=== PATIENT | female | born 1990 | race Caucasian/White ===

== ENCOUNTER 2017-03-13 03:55 | Inpatient (IN) | payer OTHER ==
[2017-03-13] MEDS ORDERED: BENZOCAINE 28 GM HEMORRHOIDAL OINTMENT TP PRN (04:52)
[2017-03-13] MEDS ORDERED: WITCH HAZEL 50% (TUCKS) 40 PAD/JAR PAD TP PRN (04:52)
[2017-03-13] MEDS ORDERED: BISACODYL 10 MG SUPP.RECT RC PRN (04:52)
[2017-03-13] MEDS ORDERED: BENZOCAINE 20% 57 GM BOTTLE TP PRN (04:52)
[2017-03-13] MEDS ORDERED: METHYLERGONOVINE MALEATE 0.2 MG/1 ML AMP IM PRN (04:52)
--- NOTE | 2017-03-13 04:59 | HP ---
Past Medical History - Primary Care Physician PCP:: Keagan Mccrary - Admission Chief Complaint: 39 weeks ,labor History of Present Illness: 26 yo f edc 03/16/17 in labor, cx 9 cm, 100 vx 0 , mi , fhr cat 1, contraction regular History Source: Patient Limitations to Obtaining History: Language Barrier - Past Surgical History Hx Myomectomy: No Hx Transabdominal Cerclage: No - Smoking History Smoking history: Never smoked Have you smoked in the past 12 months: No Aproximately how many cigarettes per day: 0 - Alcohol/Substance Use Hx Alcohol Use: No - Social History Usual Living Arrangement: Yes: With Spouse History of Recent Travel: No Home Medications - Allergies Allergies/Adverse Reactions: Allergies Allergy/AdvReac Type Severity Reaction Status Date / Time No Known Allergies Allergy Verified 10/22/16 02:00 - Home Medications Home Medications: Ambulatory Orders Pantoprazole Sodium [Protonix -] 20 mg PO BID PRN #14 tablet.ec 10/22/16 Review of Systems - Review of Systems Constitutional: reports: No Symptoms Eyes: reports: No Symptoms HENT: reports: No Symptoms Neck: reports: No Symptoms Cardiovascular: reports: No Symptoms Respiratory: reports: No Symptoms Gastrointestinal: reports: No Symptoms Genitourinary: reports: No Symptoms Breasts: reports: No Symptoms Reported Musculoskeletal: reports: No Symptoms Integumentary: reports: No Symptoms Neurological: reports: No Symptoms Endocrine: reports: No Symptoms Hematology/Lymphatic: reports: No Symptoms Physical Exam - Maternity Constitutional: Yes: Well Nourished, No Distress, Calm Eyes: Yes: WNL, Conjunctiva Clear, EOM Intact HENT: Yes: WNL, Atraumatic, Normocephalic Neck: Yes: WNL, Supple, Trachea Midline Cardiovascular: Yes: WNL, Regular Rate and Rhythm Breast(s): Yes: WNL - Abdominal Exam/OB Fundal Height: 40 Number of Fetuses: Single Presentation: Vertex Contractions: Yes Regularity: Regular Intensity: Mod/Strong Monitor Mode: External Heart Rate Location: [facility] Category: I Accelerations: Uniform - Vaginal Exam/OB Vaginal Bleediing: Yes, Bloody Show Speculum Exam: No Dilatation (cm): 9 cm Effacement (%): 100 Amniotic Membrane Status: Bulging Presentation: Vertex/Position Station: 0 - Physical Exam Musculoskeletal: Yes: WNL Edema: RLE: 1+ Deep Tendon Reflex Grade: Normal +2 Hemorrhage Risk Assessment - Risk Factors Medium Risk Factors: Yes: None High Risk Factors: Yes: None Risk Score: 1 Risk Level: Medium Risk Problem List - Problems (1) with 39 completed weeks gestation Code(s): Z3A.39 - 39 WEEKS GESTATION OF (2) First stage of labor established Code(s): ITF0724 - Assessment/Plan admit for vaginal delivery
[2017-03-13] MEDS ORDERED: D5W-LR W/ 20 UNITS OXYTOCIN 1,000 ML IV SCH (05:00)
[2017-03-13 05:18] LABS: BASOPHIL 0.4 % (0-2.0); EOSINOPHIL 0.4 % (0-4.5); MCH 29.7 pg (25.7-33.7); MCHC 33.5 g/dl (32.0-36.0); MEAN CELL VOLUME 88.6 fl (80-96); MEAN PLT VOLUME 9.7 fl (7.5-11.1); NEUTROPHILS 85.1 % (42.8-82.8); PLATELET COUNT 169 K/MM3 (134-434); RDW 14.6 % (11.6-15.6)
[2017-03-13 05:28] LABS: INR 0.88 (0.82-1.09); PROTHROMBIN TIME (PATIENT) 9.6 SEC (9.98-11.88)
[2017-03-13 05:30] LABS: ACTIVATED PTT 26.4 SECONDS (26.9-34.4)
[2017-03-13 05:38] LABS: CALCIUM 8.8 mg/dL (8.5-10.1); CREATININE 0.5 mg/dL (0.55-1.02)
[2017-03-13] MEDS ORDERED: PANTOPRAZOLE 20 MG TABLET (FP) PO PRN (05:38)
[2017-03-13 05:50] VITALS: BMI 25.6
[2017-03-13] MEDS: IBUPROFEN 600 MG TABLET (FP) PO PRN ×2 (07:39→17:06)
[2017-03-13] MEDS: ACETAMINOPHEN 325 MG TABLET (FP) PO PRN ×2 (07:42→17:06)
[2017-03-13] MEDS: PRENATAL VITAMINS W/ FOLIC ACID TABLET (FP) PO SCH (09:13)
[2017-03-13] MEDS: FERROUS SO4 325 MG TABLET (FP) PO SCH ×2 (09:13→21:05)
--- NOTE | 2017-03-14 07:58 | PN ---
Post Progress Note Type of Delivery: Vital Signs: Vital Signs Temperature 98.3 F 03/14/17 01:40 Pulse Rate 88 03/14/17 01:40 Respiratory Rate 20 03/14/17 01:40 Blood Pressure 110/50 03/14/17 01:40 O2 Sat by Pulse Oximetry (%) 100 03/13/17 06:00 Breast Exam: Yes: Soft Uterus: Yes: Fundus Firm Incision: Yes: Dressing dry and intact Abdomen/GI: Yes: Abdomen soft Lochia: Yes: Rubra Lochia, amount: Small Extremities: Yes: Calves non-tender Perineum: Yes: Intact - Labs Labs: CBC WBC 14.0 K/mm3 (4.0-10.0) H D 03/13/17 04:50 RBC 4.44 M/mm3 (3.60-5.2) 03/13/17 04:50 Hgb 13.2 GM/dL (10.7-15.3) 03/13/17 04:50 Hct 39.4 % (32.4-45.2) 03/13/17 04:50 MCV 88.6 fl (80-96) 03/13/17 04:50 MCHC 33.5 g/dl (32.0-36.0) 03/13/17 04:50 RDW 14.6 % (11.6-15.6) D 03/13/17 04:50 Plt Count 169 K/MM3 (134-434) 03/13/17 04:50 MPV 9.7 fl (7.5-11.1) D 03/13/17 04:50 Neutrophils % 85.1 % (42.8-82.8) H 03/13/17 04:50 Lymphocytes % 9.6 % (8-40) 03/13/17 04:50 Monocytes % 4.5 % (3.8-10.2) 03/13/17 04:50 Eosinophils % 0.4 % (0-4.5) 03/13/17 04:50 Basophils % 0.4 % (0-2.0) 03/13/17 04:50 Assessment/Plan as above reg diet oob pain control
[2017-03-14 08:45] LABS: BASOPHIL 0.8 % (0-2.0); EOSINOPHIL 2.6 % (0-4.5); MCH 30.5 pg (25.7-33.7); MEAN CELL VOLUME 89.5 fl (80-96); MEAN PLT VOLUME 9.3 fl (7.5-11.1); NEUTROPHILS 63.9 % (42.8-82.8); PLATELET COUNT 158 K/MM3 (134-434); RDW 14.2 % (11.6-15.6); WHITE BLOOD COUNT 10.4 K/mm3 (4.0-10.0)
[2017-03-14] MEDS: FERROUS SO4 325 MG TABLET (FP) PO SCH ×2 (09:26→21:43)
[2017-03-14] MEDS: PRENATAL VITAMINS W/ FOLIC ACID TABLET (FP) PO SCH (09:26)
[2017-03-14] MEDS: IBUPROFEN 600 MG TABLET (FP) PO PRN ×3 (09:28→21:43)
[2017-03-14] MEDS: ACETAMINOPHEN 325 MG TABLET (FP) PO PRN ×3 (09:30→21:42)
[2017-03-14] MEDS ORDERED: SENNOSIDES/DOCUSATE COMBO (SENNA PLUS) TABLET (UD) PO PRN (22:00)
[2017-03-15] MEDS: ACETAMINOPHEN 325 MG TABLET (FP) PO PRN (08:02)
[2017-03-15] MEDS: IBUPROFEN 600 MG TABLET (FP) PO PRN (08:03)
[2017-03-15] MEDS: PRENATAL VITAMINS W/ FOLIC ACID TABLET (FP) PO SCH (10:55)
[2017-03-15] MEDS: FERROUS SO4 325 MG TABLET (FP) PO SCH (10:55)
[2017-03-15 12:00] VITALS: BP 124/66; PULSE 68; TEMP 98.3
== END 2017-03-15 15:00 | disposition home or self-care (01) | DRG 560 ==
LOC: JLDR 03:55 → J3W 08:01
PROVIDERS: ADMIT Obstetrics & Gynecology; ATTEND Obstetrics & Gynecology
PROC: 10E0XZZ Delivery of Products of Conception, External Approach (ICD-10-PCS; principal; 2017-03-13)
PROC: 0KQM0ZZ Repair Perineum Muscle, Open Approach (ICD-10-PCS; 2017-03-13)
DX: O70.1 Second degree perineal laceration during delivery (principal); Z3A.39 39 weeks gestation of pregnancy; Z37.0 Single live birth
CPT/HCPCS: 36415; 59409; 80048; 85025; 85610; 85730; 86593; 86850; 86900; 86901

== ENCOUNTER 2017-04-22 23:12 | Inpatient (IN) | payer OTHER ==
--- NOTE | 2017-04-22 23:44 | PDOC ---
History of Present Illness - General History Source: Patient Exam Limitations: No Limitations - History of Present Illness Initial Comments: 04/22/17 23:54 The patient is a 26 year old female 1.5 months with no significant past medical history who presents to the ED for 3 days of chest pain vs abdominal pain. Patient reports her pain is localized in the epigastric and right upper quadrant region. States her pain is intermittent, worse at rest, and associated with nausea. Took motrin with slight improvement. Pain is not associated with food. Patient denies nausea, vomiting, or diarrhea. She denies oral contraceptives or tobacco use. Patient reports having similar symptoms 2 months prior to her delivery where she was treated here in the ER and discharge. Patient states she is currently breast feeding. The patient denies fever, diaphoresis, chills, cough, SOB, and palpitations. Allergies: NKDA Social History: No alcohol, tobacco, or drug use. Past Surgical History: None reported PCP: Dr. Katya Santos <Sara Zaidi - Last Filed: 04/23/17 00:51> - General History Source: Patient <Mt Ang - Last Filed: 04/23/17 01:05> - General Chief Complaint: Pain Stated Complaint: UPPER STOMACH PAIN Time Seen by Provider: 04/22/17 23:30 Past History <Sara Zaidi - Last Filed: 04/23/17 00:51> - Past Medical History Asthma: No Cancer: No Cardiac Disorders: No Diabetes: No HTN: No Seizures: No Thyroid Disease: No Other medical history: Pt denies - Psycho/Social/Smoking Cessation Hx Suicidal Ideation: No Smoking Status: No Smoking History: Never smoked Have you smoked in the past 12 months: No Number of Cigarettes Smoked Daily: 0 Information on smoking cessation initiated: No Hx Alcohol Use: No Drug/Substance Use Hx: No Substance Use Type: None Hx Substance Use Treatment: No <Mt Ang - Last Filed: 04/23/17 01:05> - Past Medical History Allergies/Adverse Reactions: Allergies Allergy/AdvReac Type Severity Reaction Status Date / Time No Known Allergies Allergy Verified 04/22/17 23:20 Home Medications: Ambulatory Orders Pantoprazole Sodium [Protonix -] 20 mg PO BID PRN #14 tablet.ec 10/22/16 Review of Systems - Review of Systems Able to Perform ROS?: Yes Comments:: 04/22/17 23:54 CONSTITUTIONAL: Absent: fever, no chills, no fatigue EYES: Absent: visual changes ENT: Absent: ear pain, no sore throat CARDIOVASCULAR: +chest pain Absent: no palpitations RESPIRATORY: Absent: cough, no SOB GI: +RUQ and epigastric pain, nausea Absent: no vomiting, no constipation, no diarrhea GENITOURINARY: Absent: dysuria, no frequency, no hematuria MUSCULOSKELETAL: Absent: back pain, no arthralgia, no myalgia SKIN: Absent: rash NEURO: Absent: headache <DejuanSara - Last Filed: 04/23/17 00:51> *Physical Exam - Vital Signs Last Vital Signs Temp Pulse Resp BP Pulse Ox 97.8 F 79 18 131/75 100 04/22/17 23:20 04/22/17 23:20 04/22/17 23:20 04/22/17 23:20 04/22/17 23:20 - Physical Exam Comments: 04/22/17 23:54 GENERAL: Well-appearing, well-nourished. Moderate distress. HEENT: Normocephalic, atraumatic. PERRL, EOM intact. CARDIOVASCULAR: Normal S1, S2. Regular rate and rhythm. PULMONARY: Clear to auscultation bilaterally. ABDOMINAL: Soft. Right upper quadrant and epigastric tenderness. Non-distended. No rebound. Minimal guarding. No organomegaly. Normoactive bowel sounds. EXTREMITIES: Normal ROM in all four extremities. No gross deformities. SKIN: Warm, dry. No rash NEUROLOGICAL: No focal neurological deficits. <Sara Zaidi - Last Filed: 04/23/17 00:51> - Vital Signs Last Vital Signs Temp Pulse Resp BP Pulse Ox 97.8 F 79 18 131/75 100 04/22/17 23:20 04/22/17 23:20 04/22/17 23:20 04/22/17 23:20 04/22/17 23:20 <Mt Ang - Last Filed: 04/23/17 01:05> Heart Score/ECG Review - ECG Impressions Comment:: 04/23/17 00:52 NSR @75bpm Rightward axis Borderline ECG <Sara Zaidi - Last Filed: 04/23/17 00:51> ED Treatment Course - LABORATORY CBC & Chemistry Diagram: 04/23/17 00:01 04/23/17 00:01 - RADIOLOGY Radiograph Interpretation: 04/23/17 00:48 EXAM: GALLBLADDER US Reviewed by Imaging public relations analyst: FINDINGS: The liver is enlarged and appears echogenic. Liver measures 18.6 cm. There are multiple gallstones. There is minimal thickening of the gallbladder wall measuring 3.3 mm.. No evidence for pericholecystic fluid. Negative Glass's sign. The common bile duct measures 4.8 mm. The visualized portions of the pancreas appear unremarkable. The tail of the pancreas is obscured. The right kidney is normal appearing and measures 10.9 x 3.4 x 5.6 cm. Visualized abdominal aorta measures 1.4 cm. IVC and main portal vein are patent. IMPRESSION: 1. Cholelithiasis with minimal thickening of the gallbladder wall. No evidence for sonographic Glass sign or pericholecystic fluid. 2. Fatty infiltration of the liver. <Sara Zaidi - Last Filed: 04/23/17 00:51> - LABORATORY CBC & Chemistry Diagram: 04/23/17 00:01 04/23/17 00:01 <Mt Ang - Last Filed: 04/23/17 01:05> Medical Decision Making - Medical Decision Making 04/23/17 01:04 Dr. Ang: The scribe's documentation has been prepared under my direction and personally reviewed by me in its entirery. I confirm that the note above accurately reflects all work, treatment, procedures, and medical decision making performed by me. Patient with gallstones and early cholecystitis. Patient will be admitted to [facility]. <Mt Ang - Last Filed: 04/23/17 01:05> *DC/Admit/Observation/Transfer - Attestations Scribe Attestion: 04/22/17 23:54 Documentation prepared by Sara Zaidi, acting as biomedical engineer for [facility] Ang MD/. <Sara Zaidi - Last Filed: 04/23/17 00:51> - Discharge Dispostion Admit: Yes <Mt Ang Last Filed: 06/08/17 01:05> Diagnosis at time of Disposition: Elevated transaminase level Cholelithiasis Qualifiers: Cholecystitis presence: with cholecystitis Cholecystitis acuity: acute
[2017-04-22] MEDS ORDERED: FAMOTIDINE 20 MG/50 ML IVPB 20 MG in PREMIX 50 IVPB ONE (23:46)
[2017-04-22] MEDS ORDERED: FAMOTIDINE 20 MG/50 ML IVPB 50 ML IVPB ONE (23:53)
[2017-04-23 00:21] LABS: BASOPHIL 0.6 % (0-2.0); EOSINOPHIL 3.8 % (0-4.5); MCH 28.7 pg (25.7-33.7); MCHC 32.7 g/dl (32.0-36.0); MEAN CELL VOLUME 87.8 fl (80-96); MEAN PLT VOLUME 8.3 fl (7.5-11.1); NEUTROPHILS 68.4 % (42.8-82.8); PLATELET COUNT 239 K/MM3 (134-434); RDW 13.2 % (11.6-15.6); WHITE BLOOD COUNT 9.1 K/mm3 (4.0-10.0)
[2017-04-23 00:44] LABS: ALBUMIN 3.4 g/dl (3.4-5.0); ANION GAP 13 (8-16); BILIRUBIN,TOTAL 0.5 mg/dL (0.2-1.0); CALCIUM 8.8 mg/dL (8.5-10.1); CO2 24 mmol/L (21-32); CREATININE 0.6 mg/dL (0.55-1.02); GLUCOSE,RANDOM 133 mg/dL (74-106); SGOT/AST 156 U/L (15-37); SGPT/ALT 108 U/L (12-78); TOT PROT 6.9 g/dl (6.4-8.2)
[2017-04-23 00:47] LABS: ALK PHOS 134 U/L (45-117); TROPONIN I < 0.02 ng/ml (0.00-0.05)
--- NOTE | 2017-04-23 01:33 | PN ---
<Jesus Garner - Last Filed: 04/23/17 02:57> Teaching Attending Note Name of Resident: Behzad Merino <Sonia Larsen - Last Filed: 04/23/17 02:58> Teaching Attending Note ATTENDING PHYSICIAN STATEMENT I saw and evaluated the patient. I reviewed the resident's note and discussed the case with the resident. I agree with the resident's findings and plan as documented. SUBJECTIVE: 26 yo F with no PMHx presents with 2-3 months of RUQ pain. Patient reports the pain is constant and worsened by using the bathroom. Patient notes the pain is located in the middle of her ribs and radiates toward her back. Patient denies N /V/D. Patient denies fevers and chills. Patient is 2 months . Patient had a vaginal delivery with no complications. OBJECTIVE: Last Vital Signs Temp Pulse Resp BP Pulse Ox 97.8 F 79 18 131/75 100 04/22/17 23:20 04/22/17 23:20 04/22/17 23:20 04/22/17 23:20 04/22/17 23:20 GENERAL: Awake, alert, and fully oriented, in no acute distress HEENT: Atraumatic. PERRLA, EOMI. Moist mucosa. No JVD LUNGS: No distress, speaks full sentences, clear to auscultation bilaterally HEART: Regular rate and rhythm, normal S1 and S2, no murmurs, rubs or gallops, peripheral pulses normal and equal bilaterally. ABDOMEN: Soft, RUQ tenderness to palpation, normoactive bowel sounds. No guarding, no rebound. No masses EXTREMITIES: Normal inspection, Normal range of motion, no edema. No clubbing or Cyanosis. NEUROLOGICAL: Cranial nerves II through XII grossly intact. Normal speech, gait not assessed, no focal sensorimotor deficits SKIN: Warm, Dry, normal turgor, no rashes or lesions noted. CBCD WBC 9.1 K/mm3 (4.0-10.0) 04/23/17 00:01 RBC 4.51 M/mm3 (3.60-5.2) 04/23/17 00:01 Hgb 13.0 GM/dL (10.7-15.3) D 04/23/17 00:01 Hct 39.6 % (32.4-45.2) D 04/23/17 00:01 MCV 87.8 fl (80-96) 04/23/17 00:01 MCHC 32.7 g/dl (32.0-36.0) 04/23/17 00:01 RDW 13.2 % (11.6-15.6) 04/23/17 00:01 Plt Count 239 K/MM3 (134-434) D 04/23/17 00:01 MPV 8.3 fl (7.5-11.1) D 04/23/17 00:01 CMP Sodium 141 mmol/L (136-145) 04/23/17 00:01 Potassium 3.3 mmol/L (3.5-5.1) L 04/23/17 00:01 Chloride 104 mmol/L (98-107) 04/23/17 00:01 Carbon Dioxide 24 mmol/L (21-32) D 04/23/17 00:01 Anion Gap 13 (8-16) 04/23/17 00:01 BUN 12 mg/dL (7-18) D 04/23/17 00:01 Creatinine 0.6 mg/dL (0.55-1.02) 04/23/17 00:01 Creat Clearance w eGFR > 60 (>60) 04/23/17 00:01 Calcium 8.8 mg/dL (8.5-10.1) 04/23/17 00:01 Total Bilirubin 0.5 mg/dL (0.2-1.0) D 04/23/17 00:01 AST 156 U/L (15-37) H D 04/23/17 00:01 ALT 108 U/L (12-78) H D 04/23/17 00:01 Alkaline Phosphatase 134 U/L (45-117) H D 04/23/17 00:01 Total Protein 6.9 g/dl (6.4-8.2) 04/23/17 00:01 Albumin 3.4 g/dl (3.4-5.0) 04/23/17 00:01 ASSESSMENT AND PLAN: 26 yo F with no PMHX who presents with RUQ abdominal pain for 2-3 months. 1.) Biliary colic r/o acute cholecystitis -NPO -IVF -Morphine PRN for pain -Zofran as needed for nausea -Surgical consult -Repeat LFTs in AM 2.) Hypokalemia -K supplementation DVT ppx -Low risk -ambulate Documentation is prepared by Sonia Larsen acting as medical voucher clerk for Jesus Langford M.D.
[2017-04-23] MEDS ORDERED: KCL 10 MEQ IVPB 100 ML IVPB SCH (02:15)
[2017-04-23] MEDS: SODIUM CHLORIDE 1,000 ML IV SCH ×3 (02:18→21:58)
--- NOTE | 2017-04-23 02:19 | HP ---
CHIEF COMPLAINT: abd pain OBGYN: Dr. Katya Santos PCP: ? HISTORY OF PRESENT ILLNESS: 26 year old female 1.5 months with no significant past medical history who presents to the ED for 4 days of chest pain, abdominal pain, and back pain. constant pain localized in the epigastric and right upper quadrant region radiating to back. Took motrin with slight improvement. Pain is not associated with food. Patient denies nausea, vomiting, or diarrhea. Patient reports having similar symptoms 3 months prior, where she was treated here in the ER and discharge. She denies fever, chills, diaphoresis, generalized weakness. She denies shortness of breath, cough, nausea, vomiting, diarrhea, dysuria, hematuria, urinary frequency and urgency, flank pain, vaginal discharge/vaginal bleeding. Patient states she is currently breast feeding. 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 Recent Travel:non PAST MEDICAL HISTORY: non PAST SURGICAL HISTORY:non Social History: Smoking:no Alcohol:no Drugs: no Family History: aunt DM, cousin gallstones Allergies No Known Allergies Allergy (Verified 04/22/17 23:20) HOME MEDICATIONS: Home Medications Medication Instructions Recorded Pantoprazole Sodium [Protonix -] 20 mg PO BID PRN #14 tablet.ec 10/22/16 REVIEW OF SYSTEMS CONSTITUTIONAL: Absent: fever, chills, diaphoresis, generalized weakness, malaise, loss of appetite, weight change HEENT: Absent: rhinorrhea, nasal congestion, throat pain, throat swelling, difficulty swallowing, mouth swelling, ear pain, eye pain, visual changes CARDIOVASCULAR: chest pain, Absent: syncope, palpitations, irregular heart rate, lightheadedness, peripheral edema RESPIRATORY: Absent: cough, shortness of breath, dyspnea with exertion, orthopnea, wheezing, stridor, hemoptysis GASTROINTESTINAL:abdominal pain, Absent: abdominal distension, nausea, vomiting, diarrhea, constipation, melena , hematochezia GENITOURINARY: Absent: dysuria, frequency, urgency, hesitancy, hematuria, flank pain, genital pain MUSCULOSKELETAL: back pain, Absent: myalgia, arthralgia, joint swelling, neck pain SKIN: Absent: rash, itching, pallor HEMATOLOGIC/IMMUNOLOGIC: Absent: easy bleeding, easy bruising, lymphadenopathy, frequent infections ENDOCRINE: Absent: unexplained weight gain, unexplained weight loss, heat intolerance, cold intolerance NEUROLOGIC: Absent: headache, focal weakness or paresthesias, dizziness, unsteady gait, seizure, mental status changes, bladder or bowel incontinence PSYCHIATRIC: Absent: anxiety, depression, suicidal or homicidal ideation, hallucinations. PHYSICAL EXAMINATION Vital Signs - 24 hr 04/22/17 23:20 Temperature 97.8 F Pulse Rate 79 Respiratory 18 Rate Blood Pressure 131/75 O2 Sat by Pulse 100 Oximetry (%) GENERAL: Awake, alert, and fully oriented, in moderate distress. HEAD: Normal with no signs of trauma. EYES: extraocular movements intact, sclera anicteric, conjunctiva clear. EARS, NOSE, THROAT: Ears normal, nares patent, oropharynx clear without exudates. Moist mucous membranes. NECK: Normal range of motion, supple without lymphadenopathy, JVD, or masses. LUNGS: Breath sounds equal, clear to auscultation bilaterally. No wheezes, and no crackles. No accessory muscle use. HEART: Regular rate and rhythm, normal S1 and S2 without murmur, rub or gallop. ABDOMEN: Soft, tender epi gastric and RUQ , + glass, not distended, normoactive bowel sounds, no guarding, no rebound, no masses. No hepatomegaly or splenomegaly. MUSCULOSKELETAL: Normal range of motion at all joints. No bony deformities or tenderness. No CVA tenderness. LOWER EXTREMITIES: 2+ pulses, warm, well-perfused. No calf tenderness. No peripheral edema. NEUROLOGICAL: no facial asymmetry, Normal speech. PSYCHIATRIC: Cooperative. Good eye contact. Appropriate mood and affect. SKIN: Warm, dry, normal turgor, no rashes or lesions noted, normal capillary refill. Laboratory Results - last 24 hr 04/23/17 04/23/17 00:01 00:01 WBC 9.1 RBC 4.51 Hgb 13.0 D Hct 39.6 D MCV 87.8 MCHC 32.7 RDW 13.2 Plt Count 239 D MPV 8.3 D Neutrophils % 68.4 Lymphocytes % 21.0 D Monocytes % 6.2 Eosinophils % 3.8 Basophils % 0.6 Sodium 141 Potassium 3.3 L Chloride 104 Carbon Dioxide 24 D Anion Gap 13 BUN 12 D Creatinine 0.6 Creat Clearance w eGFR > 60 Random Glucose 133 H D Calcium 8.8 Magnesium 2.0 Total Bilirubin 0.5 D AST 156 H D ALT 108 H D Alkaline Phosphatase 134 H D Creatine Kinase 79 Troponin I < 0.02 Total Protein 6.9 Albumin 3.4 Lipase 170 04/23/17 00:48 EXAM: GALLBLADDER US Reviewed by Imaging office receptionist: FINDINGS: The liver is enlarged and appears echogenic. Liver measures 18.6 cm. There are multiple gallstones. There is minimal thickening of the gallbladder wall measuring 3.3 mm.. No evidence for pericholecystic fluid. Negative Glass's sign. The common bile duct measures 4.8 mm. The visualized portions of the pancreas appear unremarkable. The tail of the pancreas is obscured. The right kidney is normal appearing and measures 10.9 x 3.4 x 5.6 cm. Visualized abdominal aorta measures 1.4 cm. IVC and main portal vein are patent. IMPRESSION: 1. Cholelithiasis with minimal thickening of the gallbladder wall. No evidence for sonographic Glass sign or pericholecystic fluid. 2. Fatty infiltration of the liver. 04/23/17 00:52 NSR @75bpm Rightward axis Borderline ECG ASSESSMENT/PLAN: 26 year old female 1.5 months with no significant past medical history who presents to the ED for 4 days of chest pain, abdominal pain, and back pain found to have Cholelithiasis and possible early cholecystitis. cholecystitis elevated LFTs + U/S + RUQ tenderness pain control IV fluids Surgery consulted UA CBC cross and screen PT/ptt/INR chest pain r/o acs CXR pending- Hcg no tdone as patient 1.5 most likley will be false positive EKG NS troponin neg x1 will trend Back pain: most likely referred pain. hypokalemia KCL 10 meq IVPB FEN NPO IV NS at 125cc/hr monitor and replete electrolytes as needed dispo: admitted to [facility], awaiting surgery input. . Visit type - Emergency Visit Emergency Visit: Yes ED Registration Date: 04/23/17 Care time: The patient presented to the Emergency Department on the above date and was hospitalized for further evaluation of their emergent condition. - New Patient This patient is new to me today: Yes Date on this admission: 04/23/17 - Critical Care Critical Care patient: No
[2017-04-23 02:35] LABS: URINE APPEARANCE CLEAR; URINE BILIRUBIN NEGATIVE (NEGATIVE); URINE COLOR LTYELLOW; URINE GLUCOSE (UA) NEGATIVE (NEGATIVE); URINE KETONE NEGATIVE (NEGATIVE); URINE NITRITE NEGATIVE (NEGATIVE); URINE PROTEIN NEGATIVE (NEGATIVE); URINE UROBILINOGEN NEGATIVE E.U./dl (0.2-1.0)
[2017-04-23 02:58] LABS: URINE BLOOD 2+ (NEGATIVE); URINE LEUK ESTERASE 3+ (NEGATIVE)
[2017-04-23 03:18] VITALS: BMI 25.9
[2017-04-23 04:37] LABS: URINE MUCUS RARE; URINE RBC 25 /hpf (0-3); URINE WBC 42 /hpf (3-5)
[2017-04-23 07:02] LABS: MCH 29.8 pg (25.7-33.7); MCHC 33.9 g/dl (32.0-36.0); MEAN PLT VOLUME 8.1 fl (7.5-11.1); PLATELET COUNT 221 K/MM3 (134-434); RDW 12.8 % (11.6-15.6); WHITE BLOOD COUNT 6.6 K/mm3 (4.0-10.0)
[2017-04-23 07:10] LABS: INR 0.95 (0.82-1.09); PROTHROMBIN TIME (PATIENT) 10.4 SEC (9.98-11.88)
[2017-04-23 07:13] LABS: ALBUMIN 3.2 g/dl (3.4-5.0); ANION GAP 10 (8-16); CALCIUM 8.4 mg/dL (8.5-10.1); CO2 25 mmol/L (21-32); CREATININE 0.5 mg/dL (0.55-1.02); GLUCOSE,RANDOM 95 mg/dL (74-106); MAGNESIUM 2.1 mg/dL (1.8-2.4); PHOSPHOROUS 3.7 mg/dL (2.5-4.9)
[2017-04-23 07:20] LABS: ALK PHOS 153 U/L (45-117); BILIRUBIN,TOTAL 1.4 mg/dL (0.2-1.0); TOT PROT 6.2 g/dl (6.4-8.2)
[2017-04-23 07:27] LABS: SGOT/AST 1572 U/L (15-37)
[2017-04-23 07:28] LABS: SGPT/ALT 888 U/L (12-78)
--- NOTE | 2017-04-23 08:06 | PN ---
Progress Note (short form) - Note Progress Note: surgery pt to be evaluated. u/s shows stones and spike in lfts consistent with choledocholithiasis. suggest gi eval for choledocholithiasis and ercp. unlikely acute cholecystitis. surgery to follow clearing of cbd.
--- NOTE | 2017-04-23 10:32 | EKG ---
Test Reason : Blood Pressure : / mmHG Vent. Rate : 075 BPM Atrial Rate : 075 BPM P-R Int : 148 ms QRS Dur : 088 ms QT Int : 400 ms P-R-T Axes : 032 100 074 degrees QTc Int : 446 ms NORMAL SINUS RHYTHM RIGHTWARD AXIS BORDERLINE ECG WHEN COMPARED WITH ECG OF 22-OCT-2016 02:01, NO SIGNIFICANT CHANGE WAS FOUND Confirmed by KE STONE MD ([id number]) on 04/23/2017 10:31:35 AM Referred By: Confirmed By:KE STONE MD
--- NOTE | 2017-04-23 17:04 | PN ---
Physical Exam: SUBJECTIVE: Patient seen and examined at bedside. RUQ pain is improved. Continues to have discomfort. Denies CP,LAYTON, SOB, palpitations, N/V. OBJECTIVE: Vital Signs Period Temp Pulse Resp BP Sys/Hutton Pulse Ox Last 24 Hr 98.6 F-99.0 F 67-80 18-20 109-117/72-73 99-99 GENERAL: AAOx3 , mild distress HEAD: NC/AT EYES: PERRL, EOMI, sclera anicteric, conjunctiva clear. No ptosis. ENT: moist mucous membranes. NECK: supple, no JVD LUNGS: CTAB, no wheeze or rales HEART: RRR, no M/G/R ABDOMEN: Soft, VALERIE tenderness, negative jay sign, nondistended, normoactive bowel sounds, no guarding, no rebound, no hepatosplenomegaly, no masses. EXTREMITIES: 2+ pulses, warm, well-perfused, no edema. NEUROLOGICAL: Cranial nerves II through XII grossly intact. Normal speech, gait not observed. Laboratory Results - last 24 hr 04/23/17 04/23/17 04/23/17 02:12 02:19 02:19 WBC RBC Hgb Hct MCV MCHC RDW Plt Count MPV INR Sodium Potassium Chloride Carbon Dioxide Anion Gap BUN Creatinine Creat Clearance w eGFR Random Glucose Calcium Phosphorus Magnesium Total Bilirubin AST ALT Alkaline Phosphatase Total Protein Albumin Serum , Qual Negative Urine Color Ltyellow Urine Appearance Clear Urine pH 6.0 Ur Specific [place] 1.010 Urine Protein Negative Urine Glucose (UA) Negative Urine Ketones Negative Urine Blood 2+ H Urine Nitrite Negative Urine Bilirubin Negative Urine Urobilinogen Negative Ur Leukocyte Esterase 3+ H D Urine RBC 25 Urine WBC 42 Ur Epithelial Cells Moderate Urine Mucus Rare Blood Type O POSITIVE Antibody Screen Negative 04/23/17 04/23/17 04/23/17 05:55 05:55 05:55 WBC 6.6 RBC 4.46 Hgb 13.3 Hct 39.2 MCV 88.0 MCHC 33.9 RDW 12.8 Plt Count 221 MPV 8.1 INR 0.95 Sodium 142 Potassium 4.2 D Chloride 107 Carbon Dioxide 25 Anion Gap 10 BUN 9 D Creatinine 0.5 L Creat Clearance w eGFR > 60 Random Glucose 95 D Calcium 8.4 L Phosphorus 3.7 Magnesium 2.1 Total Bilirubin 1.4 H D AST 1572 H ALT 888 H D Alkaline Phosphatase 153 H Total Protein 6.2 L Albumin 3.2 L Serum , Qual Urine Color Urine Appearance Urine pH Ur Specific [place] Urine Protein Urine Glucose (UA) Urine Ketones Urine Blood Urine Nitrite Urine Bilirubin Urine Urobilinogen Ur Leukocyte Esterase Urine RBC Urine WBC Ur Epithelial Cells Urine Mucus Blood Type Antibody Screen Active Medications Generic Name Dose Route Start Last Admin Trade Name Freq PRN Reason Stop Dose Admin Sodium Chloride 1,000 mls @ 125 mls/hr 04/23/17 01:45 04/23/17 12:01 Normal Saline - IV 125 mls/hr ASDIR IGNACIO Administration Ketorolac Tromethamine 15 mg 04/23/17 01:37 Toradol Injection - IVPUSH 04/28/17 01:36 Q6H PRN PAIN IMAGING: * TYPE/EXAM: RESULT: [id number] US/GALLBLADDER US HISTORY PROVIDED: Right upper quadrant pain. Real time examination of the abdomen demonstrates the following: The gallbladder is normal in size and does contain multiple calculi. There is no evidence of intra or extrahepatic biliary duct dilatation. There is no sonographic evidence of acute cholecystitis. If this is clinically suspected, a follow-up HIDA scan may be warranted. The liver is enlarged measuring 18.6 cm in cranial carotid dimension. It is hypoechoic in texture consistent with diffuse fatty infiltration. No discrete intrahepatic masses are identified. The pancreas is normal in size and texture with no pancreatic masses identified. The tail of the pancreas was not well visualized due to overlying bowel gas. There is no evidence of hydronephrosis or acute abnormalities of the right kidney. There is no evidence of AAA. The IVC is patent. IMPRESSION: Cholelithiasis and diffuse fatty infiltration of the liver. Please see above discussion. Reported By: Aaron Mckinney MD 04/23/17 0813 ASSESSMENT/PLAN: 26 yo F with no significant PMHx. presents with RUQ pain for 2-3 months. Problem List - Problems (1) Cholelithiasis Assessment/Plan: * US reveled multiple small calculi, but no evidence of duct dilatation. No evidence of cholecystitis. * Patient LFT's have increased significantly and may represent a stone in CBD * Evaluated by surgery - no intervention at this time. * Patient is NPO * IVF * Morphine for pain controll * Zofran for nausea. (2) Elevated transaminase level Assessment/Plan: * Most likely represents stone in CBD. * Hepatitis unlikely given sudden sudden increase. * Will consult GI for possible ERCP. * Will continue to trend. (3) Hypokalemia Assessment/Plan: * resolved with supplemental potassium * repeat labs in AM. Visit type - Emergency Visit Emergency Visit: Yes ED Registration Date: 04/23/17 Care time: The patient presented to the Emergency Department on the above date and was hospitalized for further evaluation of their emergent condition. - New Patient This patient is new to me today: Yes Date on this admission: 04/23/17 - Critical Care Critical Care patient: No - Discharge Referral Referred to [facility] Med P.C.: No
--- NOTE | 2017-04-23 18:02 | PN ---
Progress Note (short form) - Note Progress Note: discussed with Dr Garner and was advised to call GI engineering production liaison
[2017-04-23] MEDS ORDERED: ONDANSETRON 4 MG/2 ML VIAL IVPB PRN (20:26)
--- NOTE | 2017-04-23 20:42 | PN ---
Teaching Attending Note Name of Resident: Devaughn Kaufman ATTENDING PHYSICIAN STATEMENT I saw and evaluated the patient. I reviewed the resident's note and discussed the case with the resident. I agree with the resident's findings and plan as documented. SUBJECTIVE: Patient is feeling better, continues to have pain RUQ area with radiating to the back. OBJECTIVE: Vital Signs Temperature 100.4 F H 04/23/17 17:52 Pulse Rate 65 04/23/17 17:52 Respiratory Rate 20 04/23/17 17:52 Blood Pressure 113/65 04/23/17 17:52 O2 Sat by Pulse Oximetry (%) 99 04/23/17 09:00 CBCD WBC 6.6 K/mm3 (4.0-10.0) 04/23/17 05:55 RBC 4.46 M/mm3 (3.60-5.2) 04/23/17 05:55 Hgb 13.3 GM/dL (10.7-15.3) 04/23/17 05:55 Hct 39.2 % (32.4-45.2) 04/23/17 05:55 MCV 88.0 fl (80-96) 04/23/17 05:55 MCHC 33.9 g/dl (32.0-36.0) 04/23/17 05:55 RDW 12.8 % (11.6-15.6) 04/23/17 05:55 Plt Count 221 K/MM3 (134-434) 04/23/17 05:55 MPV 8.1 fl (7.5-11.1) 04/23/17 05:55 CMP Sodium 142 mmol/L (136-145) 04/23/17 05:55 Potassium 4.2 mmol/L (3.5-5.1) D 04/23/17 05:55 Chloride 107 mmol/L (98-107) 04/23/17 05:55 Carbon Dioxide 25 mmol/L (21-32) 04/23/17 05:55 Anion Gap 10 (8-16) 04/23/17 05:55 BUN 9 mg/dL (7-18) D 04/23/17 05:55 Creatinine 0.5 mg/dL (0.55-1.02) L 04/23/17 05:55 Creat Clearance w eGFR > 60 (>60) 04/23/17 05:55 Random Glucose 95 mg/dL (74-106) D 04/23/17 05:55 Calcium 8.4 mg/dL (8.5-10.1) L 04/23/17 05:55 Total Bilirubin 1.4 mg/dL (0.2-1.0) H D 04/23/17 05:55 AST 1572 U/L (15-37) H 04/23/17 05:55 ALT 888 U/L (12-78) H D 04/23/17 05:55 Alkaline Phosphatase 153 U/L (45-117) H 04/23/17 05:55 Total Protein 6.2 g/dl (6.4-8.2) L 04/23/17 05:55 Albumin 3.2 g/dl (3.4-5.0) L 04/23/17 05:55 CARDIAC ENZYMES Creatine Kinase 79 IU/L (26-192) 04/23/17 00:01 Troponin I < 0.02 ng/ml (0.00-0.05) 04/23/17 00:01 Home Medications Medication Instructions Recorded Pantoprazole Sodium [Protonix -] 20 mg PO BID PRN #14 tablet.ec 10/22/16 Current Medications Generic Name Dose Route Start Last Admin Trade Name Freq PRN Reason Stop Dose Admin Sodium Chloride 1,000 mls @ 125 mls/hr 04/23/17 01:45 04/23/17 12:01 Normal Saline - IV 125 mls/hr ASDIR IGNACIO Administration Ketorolac Tromethamine 15 mg 04/23/17 01:37 Toradol Injection - IVPUSH 04/28/17 01:36 Q6H PRN PAIN Ondansetron HCl 4 mg 04/23/17 20:26 Zofran Injection IVPB Q6H PRN NAUSEA US: Image Reviewed (gallstones, normal bile ducts) ASSESSMENT AND PLAN: Patient is a 26F presents with epigastric colicky pain radiating into her back .Had similar pain in 7th month of . Delivered child in 03/02. # Acute choledocholithiasis. GI consult for eval for possible ercp. #Acute Transaminitis due to stones or CBD stones DVT Px: SCDs
--- NOTE | 2017-04-23 22:42 | CON.GI ---
Consult Consult Specialty:: Gastroenterology Referred by:: Dr. Newell Reason for Consultation:: Abd pain - History of Present Illness Chief Complaint: Epigastric pain radiating into the back since last night History of Present Illness: 26F presents with epigastric colicky pain radiating into her back since last night. Had similar pain in 7th month of . Delivered child in 03/02. History and consent obtained using [employer] development coordinator # [id number]. No h/o previous GI problems or surgery. 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 (year): age 18 History of Recent Travel: No Home Medications - Allergies Allergies/Adverse Reactions: Allergies Allergy/AdvReac Type Severity Reaction Status Date / Time No Known Allergies Allergy Verified 04/22/17 23:20 - Home Medications Home Medications: Ambulatory Orders Pantoprazole Sodium [Protonix -] 20 mg PO BID PRN #14 tablet.ec 10/22/16 Family Disease History - Family Disease History Other Family History: Cousin had surgery for GB stones Review of Systems - Review of Systems Constitutional: reports: Chills Eyes: reports: No Symptoms HENT: reports: No Symptoms Neck: reports: No Symptoms Cardiovascular: reports: No Symptoms Respiratory: reports: No Symptoms Gastrointestinal: reports: Abdominal Pain, Nausea Genitourinary: reports: No Symptoms Musculoskeletal: reports: No Symptoms Integumentary: reports: No Symptoms Neurological: reports: No Symptoms Endocrine: reports: No Symptoms Physical Exam-GI Vital Signs: Vital Signs Temperature 100.4 F H 04/23/17 17:52 Pulse Rate 65 04/23/17 17:52 Respiratory Rate 20 04/23/17 17:52 Blood Pressure 113/65 04/23/17 17:52 O2 Sat by Pulse Oximetry (%) 96 04/23/17 21:00 CBC,CMP WBC 6.6 K/mm3 (4.0-10.0) 04/23/17 05:55 RBC 4.46 M/mm3 (3.60-5.2) 04/23/17 05:55 Hgb 13.3 GM/dL (10.7-15.3) 04/23/17 05:55 Hct 39.2 % (32.4-45.2) 04/23/17 05:55 MCV 88.0 fl (80-96) 04/23/17 05:55 MCHC 33.9 g/dl (32.0-36.0) 04/23/17 05:55 RDW 12.8 % (11.6-15.6) 04/23/17 05:55 Plt Count 221 K/MM3 (134-434) 04/23/17 05:55 MPV 8.1 fl (7.5-11.1) 04/23/17 05:55 Neutrophils % 68.4 % (42.8-82.8) 04/23/17 00:01 Lymphocytes % 21.0 % (8-40) D 04/23/17 00:01 Monocytes % 6.2 % (3.8-10.2) 04/23/17 00:01 Eosinophils % 3.8 % (0-4.5) 04/23/17 00:01 Basophils % 0.6 % (0-2.0) 04/23/17 00:01 Sodium 142 mmol/L (136-145) 04/23/17 05:55 Potassium 4.2 mmol/L (3.5-5.1) D 04/23/17 05:55 Chloride 107 mmol/L (98-107) 04/23/17 05:55 Carbon Dioxide 25 mmol/L (21-32) 04/23/17 05:55 Anion Gap 10 (8-16) 04/23/17 05:55 BUN 9 mg/dL (7-18) D 04/23/17 05:55 Creatinine 0.5 mg/dL (0.55-1.02) L 04/23/17 05:55 Creat Clearance w eGFR > 60 (>60) 04/23/17 05:55 Random Glucose 95 mg/dL (74-106) D 04/23/17 05:55 Calcium 8.4 mg/dL (8.5-10.1) L 04/23/17 05:55 Phosphorus 3.7 mg/dL (2.5-4.9) 04/23/17 05:55 Magnesium 2.1 mg/dL (1.8-2.4) 04/23/17 05:55 Total Bilirubin 1.4 mg/dL (0.2-1.0) H D 04/23/17 05:55 AST 1572 U/L (15-37) H 04/23/17 05:55 ALT 888 U/L (12-78) H D 04/23/17 05:55 Alkaline Phosphatase 153 U/L (45-117) H 04/23/17 05:55 Creatine Kinase 79 IU/L (26-192) 04/23/17 00:01 Troponin I < 0.02 ng/ml (0.00-0.05) 04/23/17 00:01 Total Protein 6.2 g/dl (6.4-8.2) L 04/23/17 05:55 Albumin 3.2 g/dl (3.4-5.0) L 04/23/17 05:55 Lipase 170 U/L (73-393) 04/23/17 00:01 Serum , Qual Negative 04/23/17 02:12 Current Medications Generic Name Dose Route Start Last Admin Trade Name Freq PRN Reason Stop Dose Admin Sodium Chloride 1,000 mls @ 125 mls/hr 04/23/17 01:45 04/23/17 21:58 Normal Saline - IV 125 mls/hr ASDIR IGNACIO Administration Ketorolac Tromethamine 15 mg 04/23/17 01:37 Toradol Injection - IVPUSH 04/28/17 01:36 Q6H PRN PAIN Ondansetron HCl 4 mg 04/23/17 20:26 Zofran Injection IVPB Q6H PRN NAUSEA Constitutional: Yes: Well Nourished Eyes: Yes: Conjunctiva Clear HENT: Yes: Atraumatic Neck: Yes: Supple Cardiovascular: Yes: Regular Rate and Rhythm Respiratory: Yes: CTA Bilaterally Gastrointestinal Inspection: Yes: WNL ...Auscultate: Yes: Normoactive Bowel Sounds ...Palpate: Yes: Soft, Tenderness (RUQ) ...Rectal Exam: Yes: Deferred Edema: No Peripheral Pulses WNL: Yes Integumentary: Yes: WNL Labs: CBC, BMP 04/23/17 05:55 04/23/17 05:55 INR, PTT INR 0.95 (0.82-1.09) 04/23/17 05:55 Imaging - Results Ultrasound: Image Reviewed (gallstones, normal bile ducts) Assessment/Plan 26F recently has biliary colic and rise in LFTs that suggests passage of a stone or stones into the common bile duct. Using the [employer] I informed the patient of the likely need for an ERCP, sphincterotomy ,., stone extractions and possible stenting. I also informed her of the potential of such complications as perforation of bowel or bile duct. hemorrhage and multiorgan failure related to the ERCP procedure with the potential need for transfusions and emergency surgery. I also informed her that she will subsequently need a cholecystectomy. I have ordered an MRCP which could obviate the need for ERCP. I will start Ringers lactate to help prevent ERCP pancreatitis and start antibiotics after blood cultures if not already done. Indocin suppository linda be given before the ERCP. Further recommendations to follow.
[2017-04-23] MEDS ORDERED: LACTATED RINGERS SOLUTION 1,000 ML IV SCH (23:00)
[2017-04-23] MEDS: METRONIDAZOLE 500 MG PREMIXED 100 ML IVPB SCH (23:35)
[2017-04-23] MEDS: CEFAZOLIN (PRE-DOCKED) 50 ML IVPB SCH (23:35)
[2017-04-24] MEDS: METRONIDAZOLE 500 MG PREMIXED 100 ML IVPB SCH ×3 (01:04→18:19)
[2017-04-24] MEDS: CEFAZOLIN (PRE-DOCKED) 50 ML IVPB SCH ×3 (01:04→18:18)
[2017-04-24 07:00] LABS: BASOPHIL 0.3 % (0-2.0); EOSINOPHIL 4.1 % (0-4.5); MCH 30.1 pg (25.7-33.7); MCHC 34.2 g/dl (32.0-36.0); MEAN CELL VOLUME 88.1 fl (80-96); NEUTROPHILS 79.5 % (42.8-82.8); PLATELET COUNT 198 K/MM3 (134-434); RDW 12.9 % (11.6-15.6); WHITE BLOOD COUNT 9.4 K/mm3 (4.0-10.0)
[2017-04-24 07:11] LABS: INR 1.05 (0.82-1.09); PROTHROMBIN TIME (PATIENT) 11.6 SEC (9.98-11.88)
[2017-04-24 07:21] LABS: BILIRUBIN,DIRECT 1.4 mg/dL (0.0-0.2); C-REACTIVE PROTEIN 1.9 MG/DL (0.00-0.3); CALCIUM 8.3 mg/dL (8.5-10.1)
[2017-04-24 07:29] LABS: ALBUMIN 3.2 g/dl (3.4-5.0); ALK PHOS 219 U/L (45-117); ANION GAP 14 (8-16); BILIRUBIN,TOTAL 2.4 mg/dL (0.2-1.0); CO2 20 mmol/L (21-32); CREATININE 0.4 mg/dL (0.55-1.02); GLUCOSE,RANDOM 69 mg/dL (74-106); TOT PROT 6.3 g/dl (6.4-8.2); TROPONIN I < 0.02 ng/ml (0.00-0.05)
[2017-04-24 07:32] LABS: SGOT/AST 587 U/L (15-37); SGPT/ALT 925 U/L (12-78)
--- NOTE | 2017-04-24 08:24 | CONS ---
DATE OF CONSULTATION: 04/23/2017 INPATIENT CONSULTATION REQUESTING PHYSICIAN: Anisha Hernandez MD BRIEF HISTORY: This is a 26-year-old female who approximately 2 months ago had a baby. She had previous episodes of epigastric abdominal pain. She came into the emergency room with similar symptoms, stating they have lasted for the past 3 days. She was worked up for chest pain as well as abdominal pain. She had an ultrasound done, which showed that she had gallstones with minimal thickening of the gallbladder wall and no sonographic Glass sign noted. Her white blood cell count was normal at 6.6, and she had mildly elevated liver function tests, with initial AST of 156 and ALT of 108, and an alkaline phosphatase of 134. She was admitted to the hospital for possible early cholecystitis, but repeat liver function tests rapidly increased, showing now an increased total bilirubin of 1.4, AST of 1572, ALT of 888 and an alkaline phosphatase of 153. The patient actually states she feels somewhat better, but still has some mild epigastric pain. She denies nausea, denies vomiting, denies diarrhea, denies blood in her stool, denies recent weight loss. PAST MEDICAL HISTORY: Otherwise negative. PAST SURGICAL HISTORY: Nil. ALLERGIES: She has no known drug allergies. MEDICATIONS: Home medications include Protonix. SOCIAL HISTORY: Negative for alcohol, negative for tobacco. FAMILY HISTORY: Negative for malignancy in the immediate family. REVIEW OF SYSTEMS: General: Admits to some fatigue. Cardiac: Denies chest pain, but does admit to upper abdominal/epigastric pain. Gastrointestinal: As stated in the HPI. Genitourinary: Denies dysuria. Musculoskeletal: Denies joint pain or joint swelling. Psychiatric: Denies depression or hearing voices. PHYSICAL EXAMINATION: General: This is a well-developed, well-nourished, 26-year-old female in no distress. Vital signs: She is afebrile. Her vital signs are stable. HEENT: Her head is normocephalic. Sclerae are anicteric. Neck: Supple. Chest: Clear. Abdomen: Soft. She has mild epigastric tenderness. She has no right upper quadrant tenderness. She has no surgical scars and no obvious hernias. Extremities: No clubbing, cyanosis or edema. LABORATORY STUDIES: As stated in the HPI. IMAGING: As stated in the HPI. ASSESSMENT: This is a 26-year-old female , now with epigastric pain, markedly elevated liver function tests and an ultrasound showing gallstones, without any other atypical findings. Clinically this is likely choledocholithiasis. Recommend GI evaluation for possible ERCP. I will make further recommendations after the ERCP, but the patient likely will be found to have choledocholithiasis and will need cholecystectomy, either as an inpatient or outpatient. Less likely in the differential would be an acute viral or medication-induced hepatitis. The patient currently does not need emergent cholecystectomy and does not have acute cholecystitis. DO ESTEFANI ALONSO/[id number]
[2017-04-24] MEDS ORDERED: INDOMETHACIN 50 MG RECTAL SUPPOSITORY PR ONE (12:00)
--- NOTE | 2017-04-24 12:55 | PN ---
Progress Note (short form) - Note Progress Note: surgery pt seen and examined. still has some epigastric pain. MRI reviewed and appears to have cbd stone. official report pending. abd- soft, mild epigastric tenderness Laboratory Tests 04/24/17 04/24/17 06:00 06:00 Total Bilirubin 2.4 H D Direct Bilirubin 1.4 H AST 587 H D ALT 925 H Alkaline Phosphatase 219 H D Plan- eliceo choledocholithias. ercp per gi. eventual cholecystectomy pending clinical course.
[2017-04-24] MEDS ORDERED: DESFLURANE GAS 240 ML BOTTLE IH ONE (13:58)
[2017-04-24] MEDS ORDERED: LIDOCAINE HCL/PF 2% SDV 5ML VIAL ONE (14:10)
[2017-04-24] MEDS ORDERED: ONDANSETRON 4 MG/2 ML VIAL ONE (14:10)
[2017-04-24] MEDS ORDERED: MIDAZOLAM HCL 2 MG/2 ML SINGLE DOSE VIAL ONE (14:10)
--- NOTE | 2017-04-24 15:34 | PN ---
Physical Exam: SUBJECTIVE: Patient seen and examined at bedside. No overnight events. No new complaints. OBJECTIVE: Vital Signs Period Temp Pulse Resp BP Sys/Hutton Pulse Ox Last 24 Hr 98.6 F-100.4 F 65-82 18-20 110-114/52-65 96 GENERAL: AAOx3 , mild distress HEAD: NC/AT EYES: PERRL, EOMI, sclera anicteric, conjunctiva clear. No ptosis. ENT: moist mucous membranes. NECK: supple, no JVD LUNGS: CTAB, no wheeze or rales HEART: RRR, no M/G/R ABDOMEN: Soft, RUQ tenderness, negative jay sign, nondistended, normoactive bowel sounds, no guarding, no rebound, no hepatosplenomegaly, no masses. EXTREMITIES: 2+ pulses, warm, well-perfused, no edema. NEUROLOGICAL: Cranial nerves II through XII grossly intact. Normal speech, gait not observed Laboratory Results - last 24 hr 04/24/17 04/24/17 04/24/17 06:00 06:00 06:00 WBC 9.4 D RBC 4.47 Hgb 13.4 Hct 39.4 MCV 88.1 MCHC 34.2 RDW 12.9 Plt Count 198 MPV 8.0 Neutrophils % 79.5 Lymphocytes % 12.2 D Monocytes % 3.9 Eosinophils % 4.1 Basophils % 0.3 INR Sodium 141 Potassium 3.8 Chloride 107 Carbon Dioxide 20 L Anion Gap 14 BUN 9 Creatinine 0.4 L Creat Clearance w eGFR > 60 Random Glucose 69 L D Calcium 8.3 L Total Bilirubin 2.4 H D Direct Bilirubin 1.4 H AST 587 H D ALT 925 H Alkaline Phosphatase 219 H D Troponin I < 0.02 C-Reactive Protein 1.9 H Total Protein 6.3 L Albumin 3.2 L Total Amylase 53 Lipase 125 04/24/17 06:00 WBC RBC Hgb Hct MCV MCHC RDW Plt Count MPV Neutrophils % Lymphocytes % Monocytes % Eosinophils % Basophils % INR 1.05 Sodium Potassium Chloride Carbon Dioxide Anion Gap BUN Creatinine Creat Clearance w eGFR Random Glucose Calcium Total Bilirubin Direct Bilirubin AST ALT Alkaline Phosphatase Troponin I C-Reactive Protein Total Protein Albumin Total Amylase Lipase Active Medications Generic Name Dose Route Start Last Admin Trade Name Freq PRN Reason Stop Dose Admin Cefazolin Sodium 50 mls @ 100 mls/hr 04/23/17 23:00 04/24/17 11:20 Ancef 1gm Ivpb (Pre-Docked) IVPB 100 mls/hr Q8H-IV IGNACIO Administration Metronidazole 100 mls @ 100 mls/hr 04/23/17 23:00 04/24/17 11:20 Flagyl 500mg Premixed Ivpb - IVPB 100 mls/hr Q8H-IV IGNACIO Administration Lactated Ringer's 1,000 mls @ 150 mls/hr 04/23/17 23:00 04/23/17 23:36 Lactated Ringers Solution IV 150 mls/hr ASDIR IGNACIO Administration Ketorolac Tromethamine 15 mg 04/23/17 01:37 Toradol Injection - IVPUSH 04/28/17 01:36 Q6H PRN PAIN Ondansetron HCl 4 mg 04/23/17 20:26 Zofran Injection IVPB Q6H PRN NAUSEA IMAGING: * US/GALLBLADDER US HISTORY PROVIDED: Right upper quadrant pain. Real time examination of the abdomen demonstrates the following: The gallbladder is normal in size and does contain multiple calculi. There is no evidence of intra or extrahepatic biliary duct dilatation. There is no sonographic evidence of acute cholecystitis. If this is clinically suspected, a follow-up HIDA scan may be warranted. The liver is enlarged measuring 18.6 cm in cranial carotid dimension. It is hypoechoic in texture consistent with diffuse fatty infiltration. No discrete intrahepatic masses are identified. The pancreas is normal in size and texture with no pancreatic masses identified. The tail of the pancreas was not well visualized due to overlying bowel gas. There is no evidence of hydronephrosis or acute abnormalities of the right kidney. There is no evidence of AAA. The IVC is patent. IMPRESSION: Cholelithiasis and diffuse fatty infiltration of the liver. Please see above discussion. Reported By: Aaron Mckinney MD 04/23/17 0813 * MRI/ABDOMEN MRI W/O CONTRAST /MRCP MRI OF THE ABDOMEN WITHOUT IV GADOLINIUM WITH MRCP The visualized lung bases inferior mediastinum are unremarkable. The liver is normal in size demonstrating significant loss of signal on out of phase imaging suggestive of fatty infiltration. There is no evidence of focal hepatic signal abnormality The spleen is normal in size with no evidence of focal abnormal signal. The pancreas is homogeneous in signal no evidence of focal signal abnormality. The pancreatic duct is nondilated. The gallbladder is distended containing multiple layering gallstones or wall thickening. There is a 4 mm stone in the distal CBD but with no appreciable CBD or intrahepatic biliary ductal dilatation. The adrenal glands are unremarkable. There is a 1.2 cm incompletely characterized left renal cyst. There is no evidence of abdominal lymphadenopathy or abdominal ascites. There are no abnormally dilated bowel loops. The visualized osseous structures are grossly unremarkable. IMPRESSION: Cholelithiasis with MRI findings of acute cholecystitis. Choledocholithiasis but with no significant CBD or intrahepatic biliary ductal dilatation. Marked fatty infiltration of the liver. 1.2 cm incompletely characterized left renal cyst. Correlation with renal ultrasound is suggested. Reported By: Benjamín Velázquez MD 04/24/17 1510 ASSESSMENT/PLAN: 26 yo F with no significant PMHx. presents with RUQ pain for 2-3 months. Problem List - Problems (1) Cholelithiasis Assessment/Plan: * MRCP shows gallstones with evidence of cholecystitis. * Evaluated by surgery - no intervention at this time. * Patient is NPO * Dr. Kim has seen and possible ERCP. * IVF * Morphine for pain controll * Zofran for nausea. (2) Elevated transaminase level Assessment/Plan: * MRCP confirmed CBD stone and cholecystitis. * they are trending down * repeat labs in AM (3) Hypokalemia Assessment/Plan: * resolved with supplemental potassium * repeat labs in AM. Visit type - Emergency Visit Emergency Visit: Yes ED Registration Date: 04/23/17 Care time: The patient presented to the Emergency Department on the above date and was hospitalized for further evaluation of their emergent condition. - New Patient This patient is new to me today: No - Critical Care Critical Care patient: No
--- NOTE | 2017-04-24 16:51 | PN ---
Progress Note (short form) - Note Progress Note: GI Procedure NOte: MRCP revealed a distal CBD stone. Please see ERCP report. The patient had a single distal CBD stone which was removed after creation of a sphincterotomy. Given that the procedure was brief no attempt to place a protective pancreatic stent was made. Will nevertheless order brisk RL. Patient did receive Indocin prior to the procedure.
[2017-04-24] MEDS ORDERED: LACTATED RINGERS SOLUTION 1,000 ML IV SCH ×2 (17:00→23:00)
[2017-04-24] MEDS ORDERED: PROMETHAZINE HCL 25 MG/1 ML VIAL IVPUSH PRN (17:02)
[2017-04-24] MEDS ORDERED: ONDANSETRON 4 MG/2 ML VIAL IVPUSH PRN (17:02)
[2017-04-24] MEDS: LACTATED RINGERS SOLUTION 1,000 ML IV SCH (18:18)
--- NOTE | 2017-04-24 20:29 | PN ---
Teaching Attending Note Name of Resident: Devaughn Kaufman ATTENDING PHYSICIAN STATEMENT I saw and evaluated the patient. I reviewed the resident's note and discussed the case with the resident. I agree with the resident's findings and plan as documented. SUBJECTIVE: Patient continues to have pain, s/p MRCP and ERCP OBJECTIVE: Vital Signs Temperature 98.1 F 04/24/17 17:40 Pulse Rate 88 04/24/17 17:40 Respiratory Rate 18 04/24/17 17:40 Blood Pressure 116/54 04/24/17 17:40 O2 Sat by Pulse Oximetry (%) 96 04/24/17 17:38 CBCD WBC 9.4 K/mm3 (4.0-10.0) D 04/24/17 06:00 RBC 4.47 M/mm3 (3.60-5.2) 04/24/17 06:00 Hgb 13.4 GM/dL (10.7-15.3) 04/24/17 06:00 Hct 39.4 % (32.4-45.2) 04/24/17 06:00 MCV 88.1 fl (80-96) 04/24/17 06:00 MCHC 34.2 g/dl (32.0-36.0) 04/24/17 06:00 RDW 12.9 % (11.6-15.6) 04/24/17 06:00 Plt Count 198 K/MM3 (134-434) 04/24/17 06:00 MPV 8.0 fl (7.5-11.1) 04/24/17 06:00 CMP Sodium 141 mmol/L (136-145) 04/24/17 06:00 Potassium 3.8 mmol/L (3.5-5.1) 04/24/17 06:00 Chloride 107 mmol/L (98-107) 04/24/17 06:00 Carbon Dioxide 20 mmol/L (21-32) L 04/24/17 06:00 Anion Gap 14 (8-16) 04/24/17 06:00 BUN 9 mg/dL (7-18) 04/24/17 06:00 Creatinine 0.4 mg/dL (0.55-1.02) L 04/24/17 06:00 Creat Clearance w eGFR > 60 (>60) 04/24/17 06:00 Random Glucose 69 mg/dL (74-106) L D 04/24/17 06:00 Calcium 8.3 mg/dL (8.5-10.1) L 04/24/17 06:00 Total Bilirubin 2.4 mg/dL (0.2-1.0) H D 04/24/17 06:00 AST 587 U/L (15-37) H D 04/24/17 06:00 ALT 925 U/L (12-78) H 04/24/17 06:00 Alkaline Phosphatase 219 U/L (45-117) H D 04/24/17 06:00 Total Protein 6.3 g/dl (6.4-8.2) L 04/24/17 06:00 Albumin 3.2 g/dl (3.4-5.0) L 04/24/17 06:00 CARDIAC ENZYMES Creatine Kinase 79 IU/L (26-192) 04/23/17 00:01 Troponin I < 0.02 ng/ml (0.00-0.05) 04/24/17 06:00 Current Medications Generic Name Dose Route Start Last Admin Trade Name Freq PRN Reason Stop Dose Admin Cefazolin Sodium 50 mls @ 100 mls/hr 04/23/17 23:00 04/24/17 18:18 Ancef 1gm Ivpb (Pre-Docked) IVPB 100 mls/hr Q8H-IV IGNACIO Administration Metronidazole 100 mls @ 100 mls/hr 04/23/17 23:00 04/24/17 18:19 Flagyl 500mg Premixed Ivpb - IVPB 100 mls/hr Q8H-IV IGNACIO Administration Lactated Ringer's 1,000 mls @ 200 mls/hr 04/24/17 17:00 04/24/17 18:19 Lactated Ringers Solution IV 04/24/17 23:00 Not Given ASDIR IGNACIO Lactated Ringer's 1,000 mls @ 175 mls/hr 04/24/17 23:00 Lactated Ringers Solution IV 04/25/17 05:00 ASDIR IGNACIO Lactated Ringer's 1,000 mls @ 150 mls/hr 04/25/17 05:00 Lactated Ringers Solution IV 04/25/17 11:00 ASDIR IGNACIO Lactated Ringer's 1,000 mls @ 125 mls/hr 04/25/17 11:00 Lactated Ringers Solution IV ASDIR IGNACIO Lactated Ringer's 1,000 mls @ 125 mls/hr 04/24/17 17:15 04/24/17 18:18 Lactated Ringers Solution IV 125 mls/hr ASDIR IGNACIO Administration Ketorolac Tromethamine 15 mg 04/23/17 01:37 Toradol Injection - IVPUSH 04/28/17 01:36 Q6H PRN PAIN Ondansetron HCl 4 mg 04/23/17 20:26 Zofran Injection IVPB Q6H PRN NAUSEA Ondansetron HCl 4 mg 04/24/17 17:02 Zofran Injection IVPUSH 04/24/17 23:03 Q6H PRN NAUSEA AND/OR VOMITING Promethazine HCl 12.5 mg 04/24/17 17:02 Phenergan Injection - IVPUSH 04/24/17 23:03 Q6H PRN NAUSEA Home Medications Medication Instructions Recorded Pantoprazole Sodium [Protonix -] 20 mg PO BID PRN #14 tablet.ec 10/22/16 ASSESSMENT AND PLAN: 26 yo F with no significant PMHx. presents with RUQ pain for 2-3 months. # Acute choledocholithiasis. GI consult appreciated. Started on Lactated ringers As per GI; Dr. Garcia: MRCP revealed a distal CBD stone. s/p ERCP . The patient had a single distal CBD stone which was removed after creation of a sphincterotomy. Given that the procedure was brief no attempt to place a protective pancreatic stent was made. Patient did receive Indocin prior to the procedure. # Acute Transaminitis continue monitoring . reeat levels in am
[2017-04-25] MEDS: METRONIDAZOLE 500 MG PREMIXED 100 ML IVPB SCH ×3 (01:12→17:09)
[2017-04-25] MEDS: CEFAZOLIN (PRE-DOCKED) 50 ML IVPB SCH ×3 (01:13→17:07)
[2017-04-25] MEDS ORDERED: LACTATED RINGERS SOLUTION 1,000 ML IV SCH (05:00)
[2017-04-25 07:43] LABS: BASOPHIL 0.4 % (0-2.0); EOSINOPHIL 6.5 % (0-4.5); MCH 29.8 pg (25.7-33.7); MEAN CELL VOLUME 87.7 fl (80-96); MEAN PLT VOLUME 8.1 fl (7.5-11.1); NEUTROPHILS 68.1 % (42.8-82.8); PLATELET COUNT 197 K/MM3 (134-434); WHITE BLOOD COUNT 7.3 K/mm3 (4.0-10.0)
[2017-04-25 08:01] LABS: ALBUMIN 3.2 g/dl (3.4-5.0); ALK PHOS 192 U/L (45-117); ANION GAP 12 (8-16); CALCIUM 8.5 mg/dL (8.5-10.1); CO2 23 mmol/L (21-32); CREATININE 0.5 mg/dL (0.55-1.02); GLUCOSE,RANDOM 61 mg/dL (74-106); SGOT/AST 218 U/L (15-37)
[2017-04-25 08:05] LABS: BILIRUBIN,DIRECT 1.1 mg/dL (0.0-0.2); C-REACTIVE PROTEIN 2.8 MG/DL (0.00-0.3)
[2017-04-25 08:13] LABS: SGPT/ALT 559 U/L (12-78)
--- NOTE | 2017-04-25 08:13 | PN ---
Progress Note (short form) - Note Progress Note: Anesthesia Post op Pt seen and examined S:alert and awake O: Vital Signs Temperature 98.4 F 04/25/17 05:51 Pulse Rate 78 04/25/17 05:51 Respiratory Rate 18 04/25/17 05:51 Blood Pressure 110/66 04/25/17 05:51 O2 Sat by Pulse Oximetry (%) 97 04/24/17 20:44 CBC, BMP 04/25/17 06:00 A/P:Current Active Problems Cholelithiasis (Acute) Elevated transaminase level (Acute) Hypokalemia (Acute) s/p ERCP Doing well post op Continue current care Jama North MD
[2017-04-25] MEDS: KETOROLAC TROMETHAMINE 15 MG/ML VIAL IVPUSH PRN ×2 (09:37→17:13)
[2017-04-25] MEDS: LACTATED RINGERS SOLUTION 1,000 ML IV SCH ×3 (11:19→17:15)
--- NOTE | 2017-04-25 11:53 | PN ---
Progress Note (short form) - Note Progress Note: Patient is comfortable has no new complain, no shortness of breath. Temperature 98.4 F 04/25/17 05:51 Pulse Rate 78 04/25/17 05:51 Respiratory Rate 18 04/25/17 05:51 Blood Pressure 110/66 04/25/17 05:51 O2 Sat by Pulse Oximetry (%) 97 04/24/17 20:44 GENERAL: AAOx3 , mild distress HEAD: NC/AT EYES: PERRL, EOMI, sclera anicteric, conjunctiva clear. No ptosis. ENT: moist mucous membranes. NECK: supple, no JVD LUNGS: CTAB, no wheeze or rales HEART: RRR, no M/G/R ABDOMEN: Soft, RUQ tenderness, negative jya sign, nondistended, normoactive bowel sounds, no guarding, no rebound, no hepatosplenomegaly, no masses. EXTREMITIES: 2+ pulses, warm, well-perfused, no edema. NEUROLOGICAL: Cranial nerves II through XII grossly intact. Normal speech, gait not observed CBCD WBC 7.3 K/mm3 (4.0-10.0) 04/25/17 06:00 RBC 4.16 M/mm3 (3.60-5.2) 04/25/17 06:00 Hgb 12.4 GM/dL (10.7-15.3) 04/25/17 06:00 Hct 36.5 % (32.4-45.2) 04/25/17 06:00 MCV 87.7 fl (80-96) 04/25/17 06:00 MCHC 34.0 g/dl (32.0-36.0) 04/25/17 06:00 RDW 13.0 % (11.6-15.6) 04/25/17 06:00 Plt Count 197 K/MM3 (134-434) 04/25/17 06:00 MPV 8.1 fl (7.5-11.1) 04/25/17 06:00 CMP Sodium 141 mmol/L (136-145) 04/25/17 06:00 Potassium 3.9 mmol/L (3.5-5.1) 04/25/17 06:00 Chloride 106 mmol/L (98-107) 04/25/17 06:00 Carbon Dioxide 23 mmol/L (21-32) 04/25/17 06:00 Anion Gap 12 (8-16) 04/25/17 06:00 BUN 8 mg/dL (7-18) 04/25/17 06:00 Creatinine 0.5 mg/dL (0.55-1.02) L D 04/25/17 06:00 Creat Clearance w eGFR > 60 (>60) 04/25/17 06:00 Random Glucose 61 mg/dL (74-106) L 04/25/17 06:00 Calcium 8.5 mg/dL (8.5-10.1) 04/25/17 06:00 Total Bilirubin 2.0 mg/dL (0.2-1.0) H 04/25/17 06:00 AST 218 U/L (15-37) H D 04/25/17 06:00 ALT 559 U/L (12-78) H D 04/25/17 06:00 Alkaline Phosphatase 192 U/L (45-117) H 04/25/17 06:00 Total Protein 6.0 g/dl (6.4-8.2) L 04/25/17 06:00 Albumin 3.2 g/dl (3.4-5.0) L 04/25/17 06:00 CARDIAC ENZYMES Creatine Kinase 79 IU/L (26-192) 04/23/17 00:01 Troponin I < 0.02 ng/ml (0.00-0.05) 04/24/17 06:00 Current Medications Generic Name Dose Route Start Last Admin Trade Name Freq PRN Reason Stop Dose Admin Cefazolin Sodium 50 mls @ 100 mls/hr 04/23/17 23:00 04/25/17 09:37 Ancef 1gm Ivpb (Pre-Docked) IVPB 100 mls/hr Q8H-IV IGNACIO Administration Metronidazole 100 mls @ 100 mls/hr 04/23/17 23:00 04/25/17 09:37 Flagyl 500mg Premixed Ivpb - IVPB 100 mls/hr Q8H-IV IGNACIO Administration Lactated Ringer's 1,000 mls @ 125 mls/hr 04/25/17 11:00 04/25/17 11:19 Lactated Ringers Solution IV 125 mls/hr ASDIR IGNACIO Administration Lactated Ringer's 1,000 mls @ 125 mls/hr 04/24/17 17:15 04/24/17 18:18 Lactated Ringers Solution IV 125 mls/hr ASDIR IGNACIO Administration Ketorolac Tromethamine 15 mg 04/23/17 01:37 04/25/17 09:37 Toradol Injection - IVPUSH 04/28/17 01:36 15 mg Q6H PRN Administration PAIN Ondansetron HCl 4 mg 04/23/17 20:26 Zofran Injection IVPB Q6H PRN NAUSEA Home Medications Medication Instructions Recorded Pantoprazole Sodium [Protonix -] 20 mg PO BID PRN #14 tablet.ec 10/22/16 26 yo F with no significant PMHx. presents with RUQ pain for 2-3 months. # Acute choledecholithiais GI consult appreciated. Started on Lactated ringers As per GI; Dr. Garcia: MRCP revealed a distal CBD stone. s/p ERCP . The patient had a single distal CBD stone which was removed after creation of a sphincterotomy. Given that the procedure was brief no attempt to place a protective pancreatic stent was made. Patient did receive Indocin prior to the procedure. as per Surgery; tentative cholecystectyomy Thursday # Acute Transaminitis continue monitoring . repeat levels in am DVT Px: Heparin sq Visit type - Emergency Visit Emergency Visit: Yes ED Registration Date: 04/23/17 Care time: The patient presented to the Emergency Department on the above date and was hospitalized for further evaluation of their emergent condition. - New Patient This patient is new to me today: No - Critical Care Critical Care patient: No
--- NOTE | 2017-04-25 13:23 | PN ---
Progress Note (short form) - Note Progress Note: surgery pt seen and examined. s/p ercp, sphincterotomy, stone extract. feels well afebrile abd-soft, nt paln- follow lfts. tentative cholecystectyomy Thursday Laboratory Tests 04/25/17 04/25/17 06:00 06:00 Total Bilirubin 2.0 H Direct Bilirubin 1.1 H D AST 218 H D ALT 559 H D Alkaline Phosphatase 192 H
[2017-04-26] MEDS: METRONIDAZOLE 500 MG PREMIXED 100 ML IVPB SCH ×3 (01:12→17:22)
[2017-04-26] MEDS: CEFAZOLIN (PRE-DOCKED) 50 ML IVPB SCH ×3 (02:03→17:22)
[2017-04-26] MEDS: LACTATED RINGERS SOLUTION 1,000 ML IV SCH ×2 (06:05→18:40)
[2017-04-26] MEDS: KETOROLAC TROMETHAMINE 15 MG/ML VIAL IVPUSH PRN (07:52)
[2017-04-26 08:14] LABS: BASOPHIL 0.8 % (0-2.0); MCH 29.7 pg (25.7-33.7); MEAN CELL VOLUME 87.3 fl (80-96); MEAN PLT VOLUME 8.1 fl (7.5-11.1); NEUTROPHILS 58.9 % (42.8-82.8); PLATELET COUNT 206 K/MM3 (134-434); RDW 12.9 % (11.6-15.6); WHITE BLOOD COUNT 6.4 K/mm3 (4.0-10.0)
[2017-04-26 08:58] LABS: ALK PHOS 194 U/L (45-117); ANION GAP 9 (8-16); BILIRUBIN,TOTAL 1.2 mg/dL (0.2-1.0); CALCIUM 8.3 mg/dL (8.5-10.1); CO2 28 mmol/L (21-32); COCKROFT - GAULT 154.1475; CREATININE 0.5 mg/dL (0.55-1.02); GLUCOSE,RANDOM 85 mg/dL (74-106); MAGNESIUM 1.7 mg/dL (1.8-2.4); PHOSPHOROUS 3.7 mg/dL (2.5-4.9); SGOT/AST 130 U/L (15-37); SGPT/ALT 386 U/L (12-78); TOT PROT 5.9 g/dl (6.4-8.2)
--- NOTE | 2017-04-26 09:38 | PN ---
Teaching Attending Note Name of Resident: Devaughn Kaufman ATTENDING PHYSICIAN STATEMENT I saw and evaluated the patient. I reviewed the resident's note and discussed the case with the resident. I agree with the resident's findings and plan as documented. SUBJECTIVE: Patient continues to have RUQ pain, less than before. OBJECTIVE: Vital Signs Temperature 98.4 F 04/26/17 08:00 Pulse Rate 52 L 04/26/17 08:00 Respiratory Rate 18 04/26/17 08:00 Blood Pressure 126/66 04/26/17 08:00 O2 Sat by Pulse Oximetry (%) 96 04/25/17 21:00 CBCD WBC 6.4 K/mm3 (4.0-10.0) 04/26/17 07:20 RBC 4.22 M/mm3 (3.60-5.2) 04/26/17 07:20 Hgb 12.5 GM/dL (10.7-15.3) 04/26/17 07:20 Hct 36.8 % (32.4-45.2) 04/26/17 07:20 MCV 87.3 fl (80-96) 04/26/17 07:20 MCHC 34.0 g/dl (32.0-36.0) 04/26/17 07:20 RDW 12.9 % (11.6-15.6) 04/26/17 07:20 Plt Count 206 K/MM3 (134-434) 04/26/17 07:20 MPV 8.1 fl (7.5-11.1) 04/26/17 07:20 CMP Sodium 141 mmol/L (136-145) 04/26/17 07:20 Potassium 3.6 mmol/L (3.5-5.1) 04/26/17 07:20 Chloride 104 mmol/L (98-107) 04/26/17 07:20 Carbon Dioxide 28 mmol/L (21-32) D 04/26/17 07:20 Anion Gap 9 (8-16) 04/26/17 07:20 BUN 5 mg/dL (7-18) L D 04/26/17 07:20 Creatinine 0.5 mg/dL (0.55-1.02) L 04/26/17 07:20 Creat Clearance w eGFR > 60 (>60) 04/26/17 07:20 Random Glucose 85 mg/dL (74-106) D 04/26/17 07:20 Calcium 8.3 mg/dL (8.5-10.1) L 04/26/17 07:20 Total Bilirubin 1.2 mg/dL (0.2-1.0) H D 04/26/17 07:20 AST 130 U/L (15-37) H D 04/26/17 07:20 ALT 386 U/L (12-78) H D 04/26/17 07:20 Alkaline Phosphatase 194 U/L (45-117) H 04/26/17 07:20 Total Protein 5.9 g/dl (6.4-8.2) L 04/26/17 07:20 Albumin 3.0 g/dl (3.4-5.0) L 04/26/17 07:20 CARDIAC ENZYMES Creatine Kinase 79 IU/L (26-192) 04/23/17 00:01 Troponin I < 0.02 ng/ml (0.00-0.05) 04/24/17 06:00 Current Medications Generic Name Dose Route Start Last Admin Trade Name Freq PRN Reason Stop Dose Admin Enoxaparin Sodium 40 mg 04/26/17 10:00 Lovenox - SQ DAILY IGNACIO Cefazolin Sodium 50 mls @ 100 mls/hr 04/23/17 23:00 04/26/17 02:03 Ancef 1gm Ivpb (Pre-Docked) IVPB 100 mls/hr Q8H-IV IGNACIO Administration Metronidazole 100 mls @ 100 mls/hr 04/23/17 23:00 04/26/17 01:12 Flagyl 500mg Premixed Ivpb - IVPB 100 mls/hr Q8H-IV IGNACIO Administration Lactated Ringer's 1,000 mls @ 125 mls/hr 04/25/17 11:00 04/26/17 06:05 Lactated Ringers Solution IV 125 mls/hr ASDIR IGNACIO Administration Lactated Ringer's 1,000 mls @ 125 mls/hr 04/24/17 17:15 04/25/17 17:15 Lactated Ringers Solution IV Not Given ASDIR IGNACIO Ondansetron HCl 4 mg 04/23/17 20:26 Zofran Injection IVPB Q6H PRN NAUSEA Home Medications Medication Instructions Recorded Pantoprazole Sodium [Protonix -] 20 mg PO BID PRN #14 tablet.ec 10/22/16 ASSESSMENT AND PLAN: 26 yo F with no significant PMHx. presents with RUQ pain for 2-3 months. # Acute choledecholithiais GI consult appreciated. On Lactated ringers continue. as per Surgery;cholecystectyomy on Thursday As per GI; Dr. Garcia: MRCP revealed a distal CBD stone. s/p ERCP . The patient had a single distal CBD stone which was removed after creation of a sphincterotomy. Given that the procedure was brief no attempt to place a protective pancreatic stent was made. Patient did receive Indocin prior to the procedure. # Acute Transaminitis continue monitoring . repeat levels in am DVT Px: lovenox sq stop it tonight for possible cholecystectomy
--- NOTE | 2017-04-26 09:39 | PN ---
Physical Exam: SUBJECTIVE: Patient seen and examined at bedside. No overnight events. No new complaints. Abd. pain is well controlled. Denies CP,LAYTON, SOB, palpitations, N/V. OBJECTIVE: Vital Signs Period Temp Pulse Resp BP Sys/Hutton Pulse Ox Last 24 Hr 96.6 F-99.9 F 50-61 17-18 109-136/54-75 96 GENERAL: AAOx3 , mild distress HEAD: NC/AT EYES: PERRL, EOMI, sclera anicteric, conjunctiva clear. No ptosis. ENT: moist mucous membranes. NECK: supple, no JVD LUNGS: CTAB, no wheeze or rales HEART: RRR, no M/G/R ABDOMEN: Soft, RUQ tenderness, negative jay sign, nondistended, normoactive bowel sounds, no guarding, no rebound, no hepatosplenomegaly, no masses. EXTREMITIES: 2+ pulses, warm, well-perfused, no edema. NEUROLOGICAL: Cranial nerves II through XII grossly intact. Normal speech, gait not observed Laboratory Results - last 24 hr 04/26/17 04/26/17 07:20 07:20 WBC 6.4 RBC 4.22 Hgb 12.5 Hct 36.8 MCV 87.3 MCHC 34.0 RDW 12.9 Plt Count 206 MPV 8.1 Neutrophils % 58.9 Lymphocytes % 23.1 D Monocytes % 9.2 Eosinophils % 8.0 H Basophils % 0.8 Sodium 141 Potassium 3.6 Chloride 104 Carbon Dioxide 28 D Anion Gap 9 BUN 5 L D Creatinine 0.5 L Creat Clearance w eGFR > 60 Random Glucose 85 D Calcium 8.3 L Phosphorus 3.7 Magnesium 1.7 L Total Bilirubin 1.2 H D AST 130 H D ALT 386 H D Alkaline Phosphatase 194 H Total Protein 5.9 L Albumin 3.0 L Active Medications Generic Name Dose Route Start Last Admin Trade Name Freq PRN Reason Stop Dose Admin Enoxaparin Sodium 40 mg 04/26/17 10:00 Lovenox - SQ DAILY IGNACIO Cefazolin Sodium 50 mls @ 100 mls/hr 04/23/17 23:00 04/26/17 02:03 Ancef 1gm Ivpb (Pre-Docked) IVPB 100 mls/hr Q8H-IV IGNACIO Administration Metronidazole 100 mls @ 100 mls/hr 04/23/17 23:00 04/26/17 01:12 Flagyl 500mg Premixed Ivpb - IVPB 100 mls/hr Q8H-IV IGNACIO Administration Lactated Ringer's 1,000 mls @ 125 mls/hr 04/25/17 11:00 04/26/17 06:05 Lactated Ringers Solution IV 125 mls/hr ASDIR IGNACIO Administration Lactated Ringer's 1,000 mls @ 125 mls/hr 04/24/17 17:15 04/25/17 17:15 Lactated Ringers Solution IV Not Given ASDIR IGNACIO Ondansetron HCl 4 mg 04/23/17 20:26 Zofran Injection IVPB Q6H PRN NAUSEA ASSESSMENT/PLAN: 26 yo F with no significant PMHx. presents with RUQ pain for 2-3 months. Problem List - Problems (1) Cholelithiasis Assessment/Plan: * S/P ERCP on 04/24/17 with removal of CBD stone. * cholecystectomy tomorrow * Clear Liquid diet. NPO after midnight * Morphine for pain controll * Zofran for nausea. (2) Elevated transaminase level Assessment/Plan: * continue to trend down. * ERCP with removal of stone * repeat labs in AM (3) Hypokalemia Assessment/Plan: * resolved with supplemental potassium * repeat labs in AM. Visit type - Emergency Visit Emergency Visit: Yes ED Registration Date: 04/23/17 Care time: The patient presented to the Emergency Department on the above date and was hospitalized for further evaluation of their emergent condition. - New Patient This patient is new to me today: No - Critical Care Critical Care patient: No - Discharge Referral Referred to [facility] No
[2017-04-26] MEDS ORDERED: ENOXAPARIN NA (PORCINE) 40 MG/0.4 ML DISP.SYRIN SQ ONE (10:00)
[2017-04-26] MEDS ORDERED: ENOXAPARIN NA (PORCINE) 40 MG/0.4 ML DISP.SYRIN SQ SCH (10:00)
[2017-04-27] MEDS: METRONIDAZOLE 500 MG PREMIXED 100 ML IVPB SCH ×3 (01:10→17:10)
[2017-04-27] MEDS: CEFAZOLIN (PRE-DOCKED) 50 ML IVPB SCH ×3 (02:01→17:10)
[2017-04-27] MEDS: LACTATED RINGERS SOLUTION 1,000 ML IV SCH (02:01)
[2017-04-27 07:22] LABS: CALCIUM 8.5 mg/dL (8.5-10.1); COCKROFT - GAULT 193.936; CREATININE 0.4 mg/dL (0.55-1.02)
[2017-04-27 07:29] LABS: MCH 29.9 pg (25.7-33.7); MCHC 34.4 g/dl (32.0-36.0); MEAN PLT VOLUME 8.2 fl (7.5-11.1); PLATELET COUNT 217 K/MM3 (134-434); RDW 12.9 % (11.6-15.6); WHITE BLOOD COUNT 5.3 K/mm3 (4.0-10.0)
[2017-04-27 07:56] LABS: INR 1.08 (0.82-1.09); PROTHROMBIN TIME (PATIENT) 11.9 SEC (9.98-11.88)
[2017-04-27] MEDS ORDERED: MIDAZOLAM HCL 2 MG/2 ML SINGLE DOSE VIAL ONE (12:37)
[2017-04-27] MEDS ORDERED: morphine CARPU-JECT 4 MG/1 ML DISP.SYRIN IVPB PRN (12:51)
[2017-04-27] MEDS ORDERED: oxyCODONE HCL 5 MG TABLET PO PRN (12:51)
[2017-04-27] MEDS ORDERED: ROCURONIUM BROMIDE 50 MG/5 ML VIAL ONE (13:04)
[2017-04-27] MEDS ORDERED: GLYCOPYRROLATE 0.2 MG/1 ML VIAL ONE (13:49)
[2017-04-27] MEDS ORDERED: LIDOCAINE HCL/PF 2% SDV 5ML VIAL ONE (13:49)
[2017-04-27] MEDS ORDERED: KETOROLAC TROMETHAMINE 30 MG/1 ML VIAL ONE (13:49)
[2017-04-27] MEDS ORDERED: DEXAMETHASONE SOD PHOSPHATE 4 MG/1 ML VIAL ONE (13:49)
[2017-04-27] MEDS ORDERED: NEOSTIGMINE METHYLSULFATE 0.5 MG/ML - 10 ML MDV ONE (13:49)
--- NOTE | 2017-04-27 14:10 | OP ---
Operative Note - Note: Operative Date: 04/27/17 Pre-Operative Diagnosis: cholelithiasis, choledocholithiasis Operation: laparoscopic cholecytectomy, lavage Findings: pale gb Post-Operative Diagnosis: Same as Pre-op Surgeon: Jama Clancy Anesthesiologist/MANUFACTURING QUALITY TECHNICIAN: Tricia Limon MD Anesthesia: General Specimens Removed: gb Estimated Blood Loss (mls): 30 Operative Report Dictated: Yes
[2017-04-27] MEDS ORDERED: ONDANSETRON 4 MG/2 ML VIAL IVPB PRN (14:34)
[2017-04-27] MEDS ORDERED: LACTATED RINGERS SOLUTION 1,000 ML IV SCH (14:34)
--- NOTE | 2017-04-27 15:53 | PN ---
Physical Exam: SUBJECTIVE: Patient seen and examined at bedside. POD # 0 s/p lap cholecystecomy. Tolerated the procedure well. Pain well controlled. Denies CP, LAYTON, SOB, palpitations , N/V. OBJECTIVE: Vital Signs Period Temp Pulse Resp BP Sys/Hutton Pulse Ox Last 24 Hr 97.5 F-99.0 F 51-66 15-20 115-137/61-74 96-100 GENERAL: AAOx3 , mild distress HEAD: NC/AT EYES: PERRL, EOMI, sclera anicteric, conjunctiva clear. No ptosis. ENT: moist mucous membranes. NECK: supple, no JVD LUNGS: CTAB, no wheeze or rales HEART: RRR, no M/G/R ABDOMEN: Soft, port incisions appear C/D/I, nondistended, normoactive bowel sounds, no guarding, no rebound, no hepatosplenomegaly, no masses. EXTREMITIES: 2+ pulses, warm, well-perfused, no edema. NEUROLOGICAL: Cranial nerves II through XII grossly intact. Normal speech, gait not observed Laboratory Results - last 24 hr 04/27/17 04/27/17 04/27/17 06:10 06:10 06:10 WBC 5.3 RBC 4.16 Hgb 12.4 Hct 36.2 MCV 87.0 MCHC 34.4 RDW 12.9 Plt Count 217 MPV 8.2 INR 1.08 Sodium 144 Potassium 3.6 Chloride 103 Carbon Dioxide 29 Anion Gap 12 BUN 3 L D Creatinine 0.4 L Random Glucose 94 Calcium 8.5 Active Medications Generic Name Dose Route Start Last Admin Trade Name Freq PRN Reason Stop Dose Admin Enoxaparin Sodium 40 mg 04/28/17 10:00 Lovenox - SQ DAILY IGNACIO Fentanyl 50 mcg 04/27/17 14:18 04/27/17 15:08 Sublimaze Injection - IVPUSH 04/30/17 14:19 50 mcg [id number] PRN Administration PAIN Pantoprazole Sodium 100 mls @ 200 mls/hr 04/28/17 10:00 Protonix 40mg Ivpb (Pre-Docked) IVPB DAILY IGNACIO Cefazolin Sodium 50 mls @ 100 mls/hr 04/27/17 18:00 Ancef 1gm Ivpb (Pre-Docked) IVPB Q8H-IV IGNACIO Metronidazole 100 mls @ 100 mls/hr 04/27/17 18:00 Flagyl 500mg Premixed Ivpb - IVPB Q8H-IV IGNACIO Lactated Ringer's 1,000 mls @ 125 mls/hr 04/27/17 14:34 Lactated Ringers Solution IV ASDIR IGNACIO Morphine Sulfate 4 mg 04/27/17 12:51 Morphine Injection - IVPB Q3H PRN MODERATE PAIN Ondansetron HCl 4 mg 04/27/17 14:34 Zofran Injection IVPB Q6H PRN NAUSEA Oxycodone HCl 7.5 mg 04/27/17 12:51 Roxicodone - PO Q4H PRN PAIN ASSESSMENT/PLAN: 26 yo F with no significant PMHx. presents with RUQ pain for 2-3 months. S/P Lap Cholecystectomy Problem List - Problems (1) Cholelithiasis Assessment/Plan: * S/P Cholecystectomy today * Regular diet. * Cefazolin Q8H and Flagyl Q8H IV * Oxycodone for pain controll * Zofran for nausea. (2) Elevated transaminase level Assessment/Plan: * continue to trend down. * repeat labs in AM (3) DVT prophylaxis Assessment/Plan: * Lovenox 40mg SQ daily Visit type - Emergency Visit Emergency Visit: Yes ED Registration Date: 04/23/17 Care time: The patient presented to the Emergency Department on the above date and was hospitalized for further evaluation of their emergent condition. - New Patient This patient is new to me today: No - Critical Care Critical Care patient: No
--- NOTE | 2017-04-27 20:12 | PN ---
Teaching Attending Note Name of Resident: Devaughn Kaufman ATTENDING PHYSICIAN STATEMENT I saw and evaluated the patient. I reviewed the resident's note and discussed the case with the resident. I agree with the resident's findings and plan as documented. SUBJECTIVE: Patient is c/o RUQ pain. NO fever or chills. OBJECTIVE: Vital Signs Temperature 98 F 04/27/17 16:00 Pulse Rate 66 04/27/17 16:00 Respiratory Rate 18 04/27/17 16:00 Blood Pressure 131/79 04/27/17 16:00 O2 Sat by Pulse Oximetry (%) 99 04/27/17 15:30 CBCD WBC 5.3 K/mm3 (4.0-10.0) 04/27/17 06:10 RBC 4.16 M/mm3 (3.60-5.2) 04/27/17 06:10 Hgb 12.4 GM/dL (10.7-15.3) 04/27/17 06:10 Hct 36.2 % (32.4-45.2) 04/27/17 06:10 MCV 87.0 fl (80-96) 04/27/17 06:10 MCHC 34.4 g/dl (32.0-36.0) 04/27/17 06:10 RDW 12.9 % (11.6-15.6) 04/27/17 06:10 Plt Count 217 K/MM3 (134-434) 04/27/17 06:10 MPV 8.2 fl (7.5-11.1) 04/27/17 06:10 CMP Sodium 144 mmol/L (136-145) 04/27/17 06:10 Potassium 3.6 mmol/L (3.5-5.1) 04/27/17 06:10 Chloride 103 mmol/L (98-107) 04/27/17 06:10 Carbon Dioxide 29 mmol/L (21-32) 04/27/17 06:10 Anion Gap 12 (8-16) 04/27/17 06:10 BUN 3 mg/dL (7-18) L D 04/27/17 06:10 Creatinine 0.4 mg/dL (0.55-1.02) L 04/27/17 06:10 Creat Clearance w eGFR > 60 (>60) 04/26/17 07:20 Random Glucose 94 mg/dL (74-106) 04/27/17 06:10 Calcium 8.5 mg/dL (8.5-10.1) 04/27/17 06:10 Total Bilirubin 1.2 mg/dL (0.2-1.0) H D 04/26/17 07:20 AST 130 U/L (15-37) H D 04/26/17 07:20 ALT 386 U/L (12-78) H D 04/26/17 07:20 Alkaline Phosphatase 194 U/L (45-117) H 04/26/17 07:20 Total Protein 5.9 g/dl (6.4-8.2) L 04/26/17 07:20 Albumin 3.0 g/dl (3.4-5.0) L 04/26/17 07:20 CARDIAC ENZYMES Creatine Kinase 79 IU/L (26-192) 04/23/17 00:01 Troponin I < 0.02 ng/ml (0.00-0.05) 04/24/17 06:00 Current Medications Generic Name Dose Route Start Last Admin Trade Name Freq PRN Reason Stop Dose Admin Enoxaparin Sodium 40 mg 04/28/17 10:00 Lovenox - SQ DAILY IGNACIO Fentanyl 50 mcg 04/27/17 14:18 04/27/17 15:08 Sublimaze Injection - IVPUSH 04/30/17 14:19 50 mcg [id number] PRN Administration PAIN Pantoprazole Sodium 100 mls @ 200 mls/hr 04/28/17 10:00 Protonix 40mg Ivpb (Pre-Docked) IVPB DAILY IGNACIO Cefazolin Sodium 50 mls @ 100 mls/hr 04/27/17 18:00 04/27/17 17:10 Ancef 1gm Ivpb (Pre-Docked) IVPB 100 mls/hr Q8H-IV IGNACIO Administration Metronidazole 100 mls @ 100 mls/hr 04/27/17 18:00 04/27/17 17:10 Flagyl 500mg Premixed Ivpb - IVPB 100 mls/hr Q8H-IV IGNACIO Administration Lactated Ringer's 1,000 mls @ 125 mls/hr 04/27/17 14:34 Lactated Ringers Solution IV ASDIR IGNACIO Morphine Sulfate 4 mg 04/27/17 12:51 04/27/17 17:19 Morphine Injection - IVPB 4 mg Q3H PRN Administration MODERATE PAIN Ondansetron HCl 4 mg 04/27/17 14:34 Zofran Injection IVPB Q6H PRN NAUSEA Oxycodone HCl 7.5 mg 04/27/17 12:51 Roxicodone - PO Q4H PRN PAIN Home Medications Medication Instructions Recorded Pantoprazole Sodium [Protonix -] 20 mg PO BID PRN #14 tablet.ec 10/22/16 ASSESSMENT AND PLAN: 26 yo F with no significant PMHx. presents with RUQ pain for 2-3 months. # Acute choledecholithiais GI consult appreciated. On Lactated ringers continue. as per Surgery;Lap cholecystectyomy in am. As per GI; Dr. Garcia: MRCP revealed a distal CBD stone. s/p ERCP . The patient had a single distal CBD stone which was removed after creation of a sphincterotomy. # Acute Transaminitis continue monitoring . repeat levels in am DVT Px: lovenox sq stop it tonight for possible cholecystectomy in am
[2017-04-28] MEDS: CEFAZOLIN (PRE-DOCKED) 50 ML IVPB SCH ×2 (01:15→10:27)
[2017-04-28] MEDS: METRONIDAZOLE 500 MG PREMIXED 100 ML IVPB SCH ×2 (02:29→11:12)
[2017-04-28 07:53] LABS: BASOPHIL 0.2 % (0-2.0); EOSINOPHIL 0.4 % (0-4.5); MCHC 34.7 g/dl (32.0-36.0); MEAN CELL VOLUME 86.5 fl (80-96); NEUTROPHILS 65.7 % (42.8-82.8); PLATELET COUNT 224 K/MM3 (134-434); RDW 12.4 % (11.6-15.6); WHITE BLOOD COUNT 7.6 K/mm3 (4.0-10.0)
[2017-04-28 08:09] LABS: ALBUMIN 2.9 g/dl (3.4-5.0); ALK PHOS 152 U/L (45-117); ANION GAP 12 (8-16); BILIRUBIN,TOTAL 0.6 mg/dL (0.2-1.0); CALCIUM 8.4 mg/dL (8.5-10.1); CO2 27 mmol/L (21-32); CREATININE 0.4 mg/dL (0.55-1.02); GLUCOSE,RANDOM 96 mg/dL (74-106); SGOT/AST 141 U/L (15-37); SGPT/ALT 253 U/L (12-78); TOT PROT 5.9 g/dl (6.4-8.2)
--- NOTE | 2017-04-28 08:59 | PN ---
Progress Note, Physician Chief Complaint: Pt. pain controlled, no GA complications. - Current Medication List Current Medications: Active Medications Enoxaparin Sodium (Lovenox -) 40 mg SQ DAILY IGNACIO Fentanyl (Sublimaze Injection -) 50 mcg IVPUSH [id number] PRN PRN Reason: PAIN Stop: 04/30/17 14:19 Last Admin: 04/27/17 15:08 Dose: 50 mcg Pantoprazole Sodium (Protonix 40mg Ivpb (Pre-Docked)) 100 mls @ 200 mls/hr IVPB DAILY IGNACIO Cefazolin Sodium (Ancef 1gm Ivpb (Pre-Docked)) 50 mls @ 100 mls/hr IVPB Q8H-IV IGNACIO Last Admin: 04/28/17 01:15 Dose: 100 mls/hr Metronidazole (Flagyl 500mg Premixed Ivpb -) 100 mls @ 100 mls/hr IVPB Q8H-IV IGNACIO Last Admin: 04/28/17 02:29 Dose: 100 mls/hr Lactated Ringer's (Lactated Ringers Solution) 1,000 mls @ 125 mls/hr IV [facility] Last Admin: 04/28/17 02:27 Dose: 125 mls/hr Morphine Sulfate (Morphine Injection -) 4 mg IVPB Q3H PRN PRN Reason: MODERATE PAIN Last Admin: 04/27/17 17:19 Dose: 4 mg Ondansetron HCl (Zofran Injection) 4 mg IVPB Q6H PRN PRN Reason: NAUSEA Oxycodone HCl (Roxicodone -) 7.5 mg PO Q4H PRN PRN Reason: PAIN - Objective Vital Signs: Vital Signs Temperature 99.3 F 04/28/17 06:00 Pulse Rate 76 04/28/17 06:00 Respiratory Rate 20 04/28/17 06:00 Blood Pressure 112/54 04/28/17 06:00 O2 Sat by Pulse Oximetry (%) 99 04/27/17 21:00 Constitutional: Yes: Well Nourished, No Distress, Calm Musculoskeletal: Yes: WNL Neurological: Yes: WNL, Alert, Oriented Labs: CBC, BMP 04/28/17 06:55 04/28/17 06:55 INR, PTT INR 1.08 (0.82-1.09) 04/27/17 06:10 Assessment/Plan POD#1 s/p laparoscopic cholecystectomy under GA. Doing well. D/C from anesthesia care.
[2017-04-28] MEDS ORDERED: ENOXAPARIN NA (PORCINE) 40 MG/0.4 ML DISP.SYRIN SQ SCH (10:00)
[2017-04-28] MEDS ORDERED: PANTOPRAZOLE SODIUM 100 ML IVPB SCH (10:00)
[2017-04-28 11:30] VITALS: BP 125/65; PULSE 67; TEMP 98.4
--- NOTE | 2017-04-28 12:22 | PN ---
Progress Note (short form) - Note Progress Note: surgery pt seen and examined. feels well. voiding. ambulating. tolerating diet. afebrile abd- soft, nt, nd, incisions clean Plan- surgically stable for d/c. ok to shower. ok to drive. no lifting > 20lbs. f/u in 2 weeks [phone]. abnormal lfts per medicine/gi
--- NOTE | 2017-04-28 12:48 | OP ---
DATE OF OPERATION: 04/27/2017 PREOPERATIVE DIAGNOSIS: Cholelithiasis, choledocholithiasis. POSTOPERATIVE DIAGNOSIS: Cholelithiasis, choledocholithiasis. PROCEDURE: Laparoscopic cholecystectomy, lavage. SURGEON: Jama Clancy DO CURTAIN FRAMER: None. ANESTHESIOLOGIST: Tricia Limon MD (general) SPECIMEN: Gallbladder. DRAINS: None. BLOOD LOSS: 30 mL. COMPLICATIONS: None. DISPOSITION: Recovery room in stable condition. BRIEF HISTORY: This is a 26-year-old female who presented to [facility] with signs and symptoms of choledocholithiasis and cholelithiasis. She went for an ERCP and stone extraction, presents now for cholecystectomy. PROCEDURE: The patient was placed in a supine position. General anesthesia was initiated. The abdomen was prepped and draped in sterile fashion. The patient was already on prophylactic antibiotic Ancef and Flagyl. A transverse incision was made infraumbilical with scalpel used to go through skin and subcutaneous tissue. The fascia was then lifted with a Shanon clamp. Veress needle was inserted and pneumoperitoneum was created. Of note, the patient had a ventral hernia above this incision, which was not addressed at the time of surgery. Next, an 11-mm trocar was placed, followed by insertion of a 10-mm 0-degree laparoscope. Next, an additional 11-mm trocar was placed subxiphoid and two 5-mm trocars were placed in the right upper quadrant, 1 was midclavicular line and 1 was anterior axillary line. At this point attention was turned toward the right upper quadrant, and the gallbladder was seen. It was pale, nonedematous. The fundus was lifted cephalad, the infundibulum retracted laterally. The peritoneal peel was dissected down, exposing the cystic duct and cystic artery. Both were clipped and divided. The gallbladder was then liberated from the liver bed using electrocautery, and hemostasis was maintained using electrocautery. The gallbladder was then removed through the infraumbilical trocar site after a mild fascial dilatation and sent to Pathology marked as specimen. A limited lavage was done; all return was clear. Trocars were removed under direct visualization, and no bleeding was seen. Pneumoperitoneum was released. The fascia of the infraumbilical trocar site was then closed with multiple interrupted 0 Vicryl sutures, and the 4 skin incisions were closed with subcuticular Biosyn and Dermabond dressing was placed. Overall, the patient tolerated the procedure well. There were no complications. DO ESTEFANI ALONSO/[id number] MTDD
--- NOTE | 2017-04-28 14:49 | DS ---
Physical Exam: SUBJECTIVE: Patient seen and examined at bedside. POD#1 s/p Lap. cholecystectomy. No new complaints . Tolerating diet. Passed flatus. Pain well controlled. Denies CP,LAYTON, SOB, palpitations, Abd. pain, N/V. OBJECTIVE: Vital Signs Period Temp Pulse Resp BP Sys/Hutton Pulse Ox Last 24 Hr 98 F-99.3 F 57-76 14-20 112-137/54-79 96-100 PHYSICAL EXAM GENERAL: AAOx3 , mild distress HEAD: NC/AT EYES: PERRL, EOMI, sclera anicteric, conjunctiva clear. No ptosis. ENT: moist mucous membranes. NECK: supple, no JVD LUNGS: CTAB, no wheeze or rales HEART: RRR, no M/G/R ABDOMEN: Soft, port incisions appear C/D/I, nondistended, normoactive bowel sounds, no guarding, no rebound, no hepatosplenomegaly, no masses. EXTREMITIES: 2+ pulses, warm, well-perfused, no edema. NEUROLOGICAL: Cranial nerves II through XII grossly intact. Normal speech, gait not observed LABS Laboratory Results - last 24 hr //17 // 06:55 06:55 WBC 7.6 D RBC 3.98 Hgb 11.9 Hct 34.4 MCV 86.5 MCHC 34.7 RDW 12.4 Plt Count 224 MPV 8.0 Neutrophils % 65.7 Lymphocytes % 24.3 Monocytes % 9.4 Eosinophils % 0.4 D Basophils % 0.2 Sodium 143 Potassium 3.6 Chloride 104 Carbon Dioxide 27 Anion Gap 12 BUN 6 L D Creatinine 0.4 L Creat Clearance w eGFR > 60 Random Glucose 96 Calcium 8.4 L Total Bilirubin 0.6 D AST 141 H ALT 253 H D Alkaline Phosphatase 152 H D Total Protein 5.9 L Albumin 2.9 L IMAGING: * US/GALLBLADDER US HISTORY PROVIDED: Right upper quadrant pain. Real time examination of the abdomen demonstrates the following: The gallbladder is normal in size and does contain multiple calculi. There is no evidence of intra or extrahepatic biliary duct dilatation. There is no sonographic evidence of acute cholecystitis. If this is clinically suspected, a follow-up HIDA scan may be warranted. The liver is enlarged measuring 18.6 cm in cranial carotid dimension. It is hypoechoic in texture consistent with diffuse fatty infiltration. No discrete intrahepatic masses are identified. The pancreas is normal in size and texture with no pancreatic masses identified. The tail of the pancreas was not well visualized due to overlying bowel gas. There is no evidence of hydronephrosis or acute abnormalities of the right kidney. There is no evidence of AAA. The IVC is patent. IMPRESSION: Cholelithiasis and diffuse fatty infiltration of the liver. Please see above discussion. Reported By: Aaron Mckinney MD 04/23/17 0813 * MRI/ABDOMEN MRI W/O CONTRAST /MRCP MRI OF THE ABDOMEN WITHOUT IV GADOLINIUM WITH MRCP The visualized lung bases inferior mediastinum are unremarkable. The liver is normal in size demonstrating significant loss of signal on out of phase imaging suggestive of fatty infiltration. There is no evidence of focal hepatic signal abnormality The spleen is normal in size with no evidence of focal abnormal signal. The pancreas is homogeneous in signal no evidence of focal signal abnormality. The pancreatic duct is nondilated. The gallbladder is distended containing multiple layering gallstones or wall thickening. There is a 4 mm stone in the distal CBD but with no appreciable CBD or intrahepatic biliary ductal dilatation. The adrenal glands are unremarkable. There is a 1.2 cm incompletely characterized left renal cyst. There is no evidence of abdominal lymphadenopathy or abdominal ascites. There are no abnormally dilated bowel loops. The visualized osseous structures are grossly unremarkable. IMPRESSION: Cholelithiasis with MRI findings of acute cholecystitis. Choledocholithiasis but with no significant CBD or intrahepatic biliary ductal dilatation. Marked fatty infiltration of the liver. 1.2 cm incompletely characterized left renal cyst. Correlation with renal ultrasound is suggested. Reported By: Benjamín Velázquez MD 04/24/17 1510 HOSPITAL COURSE: 26 yo F with no significant PMHx. admitted for with RUQ pain for 2-3 months. US reveled multiple small calculi, but no evidence of duct dilatation. MRCP confirmed CBD stone and cholecystitis. Rise in LFt's most likely result of passed stone. She was placed on IV abx and evaluated by surgery. She made decision to have elective lap cholecystectomy. She tolerated the procedure well. She tolerated advanced diet. Pain was well controlled. She is instructed to follow up with surgeon in two weeks. Repeat LFT's in one week and given a script for CMP. Instructed to follow up with PCP in one week. As per surgeon patient is ready to be discharged surgically stable for d/c. ok to shower. ok to drive. no lifting > 20lbs. f/u in 2 weeks [phone]. Date of Admission:04/23/17 Date of Discharge: 04/28/17 Minutes to complete discharge: 33 Discharge Summary Reason For Visit: CHOLECYSTITIS ELEVATED TRANSAMINASES Current Active Problems Cholelithiasis (Acute) DVT prophylaxis (Acute) Elevated transaminase level (Acute) Hypokalemia (Acute) Condition: Stable - Instructions Diet, Activity, Other Instructions: -Follow up with Dr. Clancy in two weeks. ok to shower. ok to drive. no lifting > 20lbs. f/u in 2 weeks [phone]. -Follow up with GI with Dr. Bauer in one week. Make sure to bring your lab work with you. -Regular diet -Increase activity as tolerated. [place]orran instructions. -Ermias sandip con el cirujano en dos semanas [phone].. Se puede jaylyn starla ducha y manejar lisa no levantar mas que 20 libras. -Ermias sandip con Dr. Bauer en starla semana despues que se hace el examen de toño. -Dieta baja en grasa -mantengase activa. Referrals: Jeremy Bauer MD [Staff Physician] - Jama Clancy MD [Staff Physician] - Disposition: HOME - Home Medications Comprehensive Discharge Medication List: Ambulatory Orders Pantoprazole Sodium [Protonix -] 20 mg PO BID PRN #14 tablet.ec 10/22/16 Miscellaneous Drug Not In Syst [Outpatient Lab Test] 1 each ASDIR #1 misc Oxycodone HCl [Roxicodone] 5 mg PO Q6H #10 tablet MDD 4 04/28/17 Problem List - Problems (1) Cholelithiasis (2) Elevated transaminase level (3) DVT prophylaxis This patient is new to me today: No Emergency Visit: Yes ED Registration Date: 04/23/17 Care time: The patient presented to the Emergency Department on the above date and was hospitalized for further evaluation of their emergent condition. Critical Care patient: No - Discharge Referral Referred to [facility] Med P.C.: No
--- NOTE | 2017-04-28 20:25 | PN ---
Teaching Attending Note Name of Resident: Devaughn Kaufman ATTENDING PHYSICIAN STATEMENT I saw and evaluated the patient. I reviewed the resident's note and discussed the case with the resident. I agree with the resident's findings and plan as documented. SUBJECTIVE: Patient is comfortable with no acute distress. No nausea or vomiting. OBJECTIVE: Vital Signs Temperature 98.4 F 04/28/17 10:00 Pulse Rate 67 04/28/17 10:00 Respiratory Rate 20 04/28/17 10:00 Blood Pressure 125/65 04/28/17 10:00 O2 Sat by Pulse Oximetry (%) 99 04/27/17 21:00 CBCD WBC 7.6 K/mm3 (4.0-10.0) D 04/28/17 06:55 RBC 3.98 M/mm3 (3.60-5.2) 04/28/17 06:55 Hgb 11.9 GM/dL (10.7-15.3) 04/28/17 06:55 Hct 34.4 % (32.4-45.2) 04/28/17 06:55 MCV 86.5 fl (80-96) 04/28/17 06:55 MCHC 34.7 g/dl (32.0-36.0) 04/28/17 06:55 RDW 12.4 % (11.6-15.6) 04/28/17 06:55 Plt Count 224 K/MM3 (134-434) 04/28/17 06:55 MPV 8.0 fl (7.5-11.1) 04/28/17 06:55 CMP Sodium 143 mmol/L (136-145) 04/28/17 06:55 Potassium 3.6 mmol/L (3.5-5.1) 04/28/17 06:55 Chloride 104 mmol/L (98-107) 04/28/17 06:55 Carbon Dioxide 27 mmol/L (21-32) 04/28/17 06:55 Anion Gap 12 (8-16) 04/28/17 06:55 BUN 6 mg/dL (7-18) L D 04/28/17 06:55 Creatinine 0.4 mg/dL (0.55-1.02) L 04/28/17 06:55 Creat Clearance w eGFR > 60 (>60) 04/28/17 06:55 Random Glucose 96 mg/dL (74-106) 04/28/17 06:55 Calcium 8.4 mg/dL (8.5-10.1) L 04/28/17 06:55 Total Bilirubin 0.6 mg/dL (0.2-1.0) D 04/28/17 06:55 AST 141 U/L (15-37) H 04/28/17 06:55 ALT 253 U/L (12-78) H D 04/28/17 06:55 Alkaline Phosphatase 152 U/L (45-117) H D 04/28/17 06:55 Total Protein 5.9 g/dl (6.4-8.2) L 04/28/17 06:55 Albumin 2.9 g/dl (3.4-5.0) L 04/28/17 06:55 CARDIAC ENZYMES Creatine Kinase 79 IU/L (26-192) 04/23/17 00:01 Troponin I < 0.02 ng/ml (0.00-0.05) 04/24/17 06:00 Home Medications Medication Instructions Recorded Pantoprazole Sodium [Protonix -] 20 mg PO BID PRN #14 tablet.ec 10/22/16 Miscellaneous Drug Not In Syst 1 each ASDIR #1 misc 04/28/17 [Outpatient Lab Test] Oxycodone HCl [Roxicodone] 5 mg PO Q6H #10 tablet MDD 4 04/28/17 ASSESSMENT AND PLAN: 26 yo F with no significant PMHx. presents with RUQ pain for 2-3 months. # Acute choledecholithiais s/p lab malcolm. As per surgeon ,patient can be discharged. # Acute Transaminitis improving , repeat levels within 7 days. As per surgeon patient is ready to be discharged surgically stable for d/c. ok to shower. ok to drive. no lifting > 20lbs. f/u in 2 weeks [phone].
--- NOTE | 2017-04-29 14:31 | PATH ---
Surgical Pathology Report Patient Name: KATHY ARAIZA [facility]. Rec. #: [id number] /Age/Gender: 1990 (Age: 26) / F Account: [id number] Location: [address] [place] [address]/[facility] Taken: 04/27/2017 Received: 04/28/2017 Reported: 04/29/2017 Physicians: Jesus Garner M.D. Specimen(s) Received GALLBLADDER Clinical History Cholecystitis, elevated transaminases Final Diagnosis GALLBLADDER, CHOLECYSTECTOMY: CHRONIC CHOLECYSTITIS, CHOLELITHIASIS AND CHOLESTEROLOSIS. Electronically Signed Jean-Paul Cullen M.D. Gross Description ---- Received in formalin, labeled "gallbladder" is a 7.5 x 3.3 x 3.0 cm gallbladder with a 0.2 cm in length portion of cystic duct attached. The outer surface is green and varies from smooth to shaggy. The lumen contains green-brown, tenacious bile as well as numerous yellow, irregular choleliths ranging from 0.1-0.9 cm in greatest dimension. The mucosa is green and velvety. The wall of the gallbladder averages 0.1 cm in thickness. Sign Maker sections are submitted in one cassette. 04/28/201704/28/2017
== END 2017-04-28 15:27 | disposition home or self-care (01) | DRG 263 ==
LOC: JER 23:12 → JERBED 04-23 01:01 → J6S 04-23 02:41
PROVIDERS: ADMIT Internal Medicine; ATTEND Internal Medicine
PROC: 0FC98ZZ Extirpation of Matter from Common Bile Duct, Via Natural or Artificial Opening Endoscopic (ICD-10-PCS; 2017-04-24)
PROC: BF13YZZ Fluoroscopy of Gallbladder and Bile Ducts using Other Contrast (ICD-10-PCS; 2017-04-27)
PROC: 0FT44ZZ Resection of Gallbladder, Percutaneous Endoscopic Approach (ICD-10-PCS; principal; 2017-04-27 12:00)
DX: K80.50 Calculus of bile duct without cholangitis or cholecystitis without obstruction (principal); E87.6 Hypokalemia; R74.0 Nonspecific elevation of levels of transaminase and lactic acid dehydrogenase [LDH]
CPT/HCPCS: 36415; 71010-TC; 74181-TC; 76000-TC; 76705-TC; 80048; 80053; 81003; 81015; 82150; 82248; 82550; 83690; 83735; 84100; 84484; 84703; 85025; 85027; 85610; 86140; 86850; 86900; 86901; 87040; 87086; 88304-TC; 93005; 93010; 94760; 99283-25

== ENCOUNTER 2021-02-02 18:15 | Emergency (ER) | payer OTHER ==
[2021-02-02 18:34] VITALS: TEMP 98.1; BMI 30.7
[2021-02-02] MEDS ORDERED: guaiFENesin 200 MG/10 ML 10 ML UNIT-DOSE CUPS PO ONE (21:09)
[2021-02-02] MEDS ORDERED: AZITHROMYCIN 500 MG TABLET PO ONE (21:13)
[2021-02-02] MEDS ORDERED: guaiFENesin/D-METHORPHAN HB 10 ML UNIT-DOSE CUPS ONE (21:48)
[2021-02-02] MEDS ORDERED: AZITHROMYCIN 250 MG TABLET ONE (21:48)
[2021-02-02 22:06] VITALS: BP 128/77; PULSE 76
== END 2021-02-02 22:06 | disposition home or self-care (01) ==
LOC: JER 18:15
DX: B34.9 Viral infection, unspecified (principal)
CPT/HCPCS: 71045-TC-FY; 99284-25; C9803; U0003